=== PATIENT | female | born 1995 | race Caucasian/White ===

== ENCOUNTER 2019-05-25 12:59 | Emergency (ER) | payer OTHER ==
--- NOTE | 2019-05-25 13:05 | ERPHSYRPT ---
- History of Present Illness Time Seen by Provider: 05/25/19 13:05 Source: patient, family Exam Limitations: no limitations Physician History: 24 y/o white female presents with vaginal bleeding that began yesterday as spotting then increased to menstrual bleeding this am. mild suprapubic cramping. no n/v/d. pt is O negative blood type and has received rhogam in past. pt states she is 6 weeks . she had an ultrasound and determined one intrauterine fetus. pts ob is Dr. Montoya and we have been unable to access lab work and ultrasound through his office. work up supposedly performed this past . Timing/Duration: day(s) (1) Activites at Onset: none Quality: cramping (mild suprapubic cramping) Onset Location: suprapubic Pain Radiation: none Severity of Pain-Max: mild Severity of Pain-Current: mild Prior abdominal problems: none Sexual intercourse history: non-contributory Modifying Factors: Improves With: nothing Associated Symptoms: vaginal discharge (blood) Allergies/Adverse Reactions: cephalexin [From Keflex] Allergy (Verified 05/25/19 13:08) Penicillins Allergy (Verified 05/25/19 13:08) sulfamethoxazole [From Bactrim] Allergy (Verified 05/25/19 13:08) trimethoprim [From Bactrim] Allergy (Verified 05/25/19 13:08) Home Medications: Vits W-Ca,Fe,FA(<1Mg) [] 1 tab PO DAILY 05/25/19 [History] - Review of Systems Constitutional: No Symptoms Eyes: No Symptoms Ears, Nose, & Throat: No Symptoms Respiratory: No Symptoms Cardiac: No Symptoms Abdominal/Gastrointestinal: No Symptoms Genitourinary Symptoms: Vaginal Bleeding Musculoskeletal: No Symptoms Skin: No Symptoms Neurological: No Symptoms Psychological: No Symptoms Endocrine: No Symptoms Hematologic/Lymphatic: No Symptoms Immunological/Allergic: No Symptoms All Other Systems: Reviewed and Negative - Past Medical History Neurological History: No Pertinent History ENT History: No Pertinent History Cardiac History: No Pertinent History Respiratory History: No Pertinent History Endocrine Medical History: No Pertinent History Musculoskeletal History: No Pertinent History GI Medical History: No Pertinent History History: No Pertinent History Psycho-Social History: No Pertinent History Female Reproductive Disorders: No Pertinent History - Past Surgical History Neuro Surgical History: No Pertinent History Cardiac: No Pertinent History Respiratory: No Pertinent History Gastrointestinal: No Pertinent History Genitourinary: No Pertinent History Musculoskeletal: No Pertinent History Female Surgical History: No Pertinent History - Nursing Vital Signs Nursing Vital Signs: Initial Vital Signs Temperature 98.4 F 05/25/19 13:10 Pulse Rate 105 H 05/25/19 13:10 Respiratory Rate 18 05/25/19 13:10 Blood Pressure 147/86 05/25/19 13:10 O2 Sat by Pulse Oximetry 100 05/25/19 13:10 Pain Scale Pain Intensity 5 - Physical Exam General Appearance: no apparent distress, alert, anxiety Eye Exam: PERRL/EOMI, eyes nml inspection Ears, Nose, Throat Exam: normal ENT inspection, moist mucous membranes Neck Exam: normal inspection, non-tender, supple, full range of motion Respiratory Exam: normal breath sounds, lungs clear, airway intact, No chest tenderness, No respiratory distress Cardiovascular Exam: regular rate/rhythm, normal heart sounds, normal peripheral pulses Gastrointestinal/Abdomen Exam: soft, normal bowel sounds, No tenderness Pelvic Exam: not done, vaginal bleeding ( is not bleeding at this time) Rectal Exam: not done Back Exam: normal inspection, normal range of motion, No CVA tenderness Extremity Exam: normal inspection, normal range of motion, pelvis stable Neurologic Exam: alert, oriented x 3, cooperative, multiple games dealer II-XII nml as tested Skin Exam: normal color, warm, dry Lymphatic Exam: adenopathy O2 Delivery: Room Air - Course Nursing assessment & vital signs reviewed: Yes Ordered Tests: Active Orders 24 hr Category Date Time Status CBC W DIFF Stat Lab 05/25/19 13:17 Completed CMP Stat Lab 05/25/19 13:17 Completed HCG, Quantitative (Inhouse) Stat Lab 05/25/19 13:17 Completed UA W/RFX UR CULTURE Stat Lab 05/25/19 13:17 Completed Lab/Rad Data: Laboratory Result Diagrams 05/25/19 13:17 05/25/19 13:17 Laboratory Results 05/25/19 05/25/19 05/25/19 Range/Units 13:17 13:17 13:17 WBC (4.0-10.5) K/mm3 RBC (4.1-5.4) M/mm3 Hgb (12.0-16.0) gm/dl Hct (35-47) % MCV (78-100) fl MCH (26-32) pg MCHC (32-36) g/dl RDW (11.5-14.0) % Plt Count (150-450) K/mm3 MPV (6-9.5) fl Gran % (36.0-66.0) % Eos # (Auto) (0-0.5) Absolute Lymphs (auto) (1.0-4.6) Absolute Monos (auto) (0.0-1.3) Lymphocytes % (24.0-44.0) % Monocytes % (0.0-12.0) % Eosinophils % (0.00-5.0) % Basophils % (0.0-0.4) % Absolute Granulocytes (1.4-6.9) Basophils # (0-0.4) Sodium 140 (137-145) mmol/L Potassium 3.6 (3.5-5.1) mmol/L Chloride 104 (98-107) mmol/L Carbon Dioxide 26 (22-30) mmol/L Anion Gap 13.5 (5-15) MEQ/L BUN 8 (7-17) mg/dL Creatinine 0.59 (0.52-1.04) mg/dL Estimated GFR > 60.0 ML/MIN Glucose 82 (74-106) mg/dL Calcium 9.6 (8.4-10.2) mg/dL Total Bilirubin 0.70 (0.2-1.3) mg/dL AST 23 (14-36) U/L ALT 16 (0-35) U/L Alkaline Phosphatase 107 (38-126) U/L Serum Total Protein 8.0 (6.3-8.2) g/dL Albumin 4.2 (3.5-5.0) g/dL Beta HCG, Quant 1126.6 mIU/ml Urine Color YELLOW (YELLOW) Urine Appearance CLEAR (CLEAR) Urine pH 7.0 (5-6) Ur Specific [place] 1.009 (1.005-1.025) Urine Protein NEGATIVE (Negative) Urine Ketones NEGATIVE (NEGATIVE) Urine Blood MODERATE (0-5) Guido/ul Urine Nitrite NEGATIVE (NEGATIVE) Urine Bilirubin NEGATIVE (NEGATIVE) Urine Urobilinogen NEGATIVE (0-1) mg/dL Ur Leukocyte Esterase NEGATIVE (NEGATIVE) Urine WBC (Auto) 6-10 (0-5) /HPF Urine RBC (Auto) 0-2 (0-2) /HPF U Epithel Cells (Auto) NONE (FEW) /HPF Urine Bacteria (Auto) RARE (NEGATIVE) /HPF Urine Mucus (Auto) SLIGHT (NEGATIVE) /HPF Urine Culture Reflexed NO (NO) Urine Glucose NEGATIVE (NEGATIVE) mg/dL 05/25/19 Range/Units 13:17 WBC 10.7 H (4.0-10.5) K/mm3 RBC 4.64 (4.1-5.4) M/mm3 Hgb 13.1 (12.0-16.0) gm/dl Hct 38.7 (35-47) % MCV 83.4 (78-100) fl MCH 28.2 (26-32) pg MCHC 33.9 (32-36) g/dl RDW 13.9 (11.5-14.0) % Plt Count 316 (150-450) K/mm3 MPV 10.9 H (6-9.5) fl Gran % 59.1 (36.0-66.0) % Eos # (Auto) 0.19 (0-0.5) Absolute Lymphs (auto) 2.83 (1.0-4.6) Absolute Monos (auto) 1.34 H (0.0-1.3) Lymphocytes % 26.4 (24.0-44.0) % Monocytes % 12.5 H (0.0-12.0) % Eosinophils % 1.8 (0.00-5.0) % Basophils % 0.2 (0.0-0.4) % Absolute Granulocytes 6.32 (1.4-6.9) Basophils # 0.02 (0-0.4) Sodium (137-145) mmol/L Potassium (3.5-5.1) mmol/L Chloride (98-107) mmol/L Carbon Dioxide (22-30) mmol/L Anion Gap (5-15) MEQ/L BUN (7-17) mg/dL Creatinine (0.52-1.04) mg/dL Estimated GFR ML/MIN Glucose (74-106) mg/dL Calcium (8.4-10.2) mg/dL Total Bilirubin (0.2-1.3) mg/dL AST (14-36) U/L ALT (0-35) U/L Alkaline Phosphatase (38-126) U/L Serum Total Protein (6.3-8.2) g/dL Albumin (3.5-5.0) g/dL Beta HCG, Quant mIU/ml Urine Color (YELLOW) Urine Appearance (CLEAR) Urine pH (5-6) Ur Specific [place] (1.005-1.025) Urine Protein (Negative) Urine Ketones (NEGATIVE) Urine Blood (0-5) Guido/ul Urine Nitrite (NEGATIVE) Urine Bilirubin (NEGATIVE) Urine Urobilinogen (0-1) mg/dL Ur Leukocyte Esterase (NEGATIVE) Urine WBC (Auto) (0-5) /HPF Urine RBC (Auto) (0-2) /HPF U Epithel Cells (Auto) (FEW) /HPF Urine Bacteria (Auto) (NEGATIVE) /HPF Urine Mucus (Auto) (NEGATIVE) /HPF Urine Culture Reflexed (NO) Urine Glucose (NEGATIVE) mg/dL - Progress Progress: unchanged Air Movement: good Blood Culture(s) Obtained: No Antibiotics given: No Counseled pt/family regarding: lab results, diagnosis, need for follow-up - Departure Departure Disposition: Home Clinical Impression: Vaginal bleeding before 22 weeks gestation Condition: Stable Critical Care Time: No Referrals: MARY MONTOYA DO [Primary Care Provider] - Additional Instructions: call Dr. Montoya office tomorrow morning to arrange follow up appointment.
[2019-05-25 13:28] LABS: Absolute Neutrophil Ct (ANC) 6.32 (1.4-6.9); BASOPHIL % 0.2 % (0.0-0.4); Basophil (Absolute #) 0.02 (0-0.4); Eosinophil % 1.8 % (0.00-5.0); Eosinophil (Absolute #) 0.19 (0-0.5); Hematocrit 38.7 % (35-47); Hemoglobin 13.1 gm/dl (12.0-16.0); Lymphocyte (Absolute #) 2.83 (1.0-4.6); Lymphocytes % 26.4 % (24.0-44.0); Mean Cell Volume 83.4 fl (78-100); Mean Corpuscular Hemoglobin 28.2 pg (26-32); Mean Corpuscular Hgb Concent. 33.9 g/dl (32-36); Mean Platelet Volume 10.9 fl (6-9.5); Monocyte (Absolute #) 1.34 (0.0-1.3); Monocytes % 12.5 % (0.0-12.0); Neutrophil % 59.1 % (36.0-66.0); Platelet Count 316 K/mm3 (150-450); Red Blood Count 4.64 M/mm3 (4.1-5.4); Red Cell Distribution Width 13.9 % (11.5-14.0); White Blood Count 10.7 K/mm3 (4.0-10.5)
[2019-05-25 13:34] LABS: ALBUMIN 4.2 g/dL (3.5-5.0); ALKALINE PHOSPHATASE 107 U/L (38-126); ANION GAP 13.5 MEQ/L (5-15); BLOOD UREA NITROGEN 8 mg/dL (7-17); CHLORIDE 104 mmol/L (98-107); Calcium 9.6 mg/dL (8.4-10.2); Carbon Dioxide 26 mmol/L (22-30); Creatinine 1 0.59 mg/dL (0.52-1.04); Glucose 82 mg/dL (74-106); Potassium 3.6 mmol/L (3.5-5.1); SGOT/AST 23 U/L (14-36); SGPT/ALT 16 U/L (0-35); SODIUM 140 mmol/L (137-145)
[2019-05-25 13:44] LABS: Appearance CLEAR (CLEAR); Bacteria RARE /HPF (NEGATIVE); Bilirubin NEGATIVE (NEGATIVE); Blood MODERATE Ery/ul (0-5); Glucose NEGATIVE (NEGATIVE); Ketones NEGATIVE (NEGATIVE); Leukocyte Esterase NEGATIVE (NEGATIVE); Mucus SLIGHT /HPF (NEGATIVE); Nitrite NEGATIVE (NEGATIVE); Protein,Urine Dip NEGATIVE (Negative); RBC 0-2 /HPF (0-2); Specific Gravity 1.009 (1.005-1.025); Urobilinogen NEGATIVE mg/dL (0-1)
[2019-05-25 14:17] VITALS: BP 115/73
[2019-05-25 14:18] VITALS: PULSE 90; O2SAT 99
== END 2019-05-25 15:00 | disposition home or self-care (01) ==
LOC: ED 12:59
DX: O46.92 Antepartum hemorrhage, unspecified, second trimester (principal); Z3A.22 22 weeks gestation of pregnancy
CPT/HCPCS: 36415; 80053; 81001; 84702; 85025; 99283

== ENCOUNTER 2020-06-28 13:26 | Observation (INO) | payer OTHER ==
[2020-06-28 15:16] VITALS: BP 131/77; PULSE 112; O2SAT 99
== END 2020-06-28 16:00 | disposition home or self-care (01) ==
LOC: WHC 13:26 → OB 13:54
PROVIDERS: ADMIT Obstetrics & Gynecology; ATTEND Obstetrics & Gynecology
DX: Z34.81 Encounter for supervision of other normal pregnancy, first trimester (principal)
CPT/HCPCS: 59025; 59425; G0378; 81002

== ENCOUNTER 2020-07-05 12:40 | Observation (INO) | payer OTHER ==
[2020-07-05 14:17] VITALS: BP 127/66; PULSE 108
== END 2020-07-05 13:55 | disposition home or self-care (01) ==
LOC: OB 12:40
PROVIDERS: ADMIT Obstetrics & Gynecology; ATTEND Obstetrics & Gynecology
DX: Z34.83 Encounter for supervision of other normal pregnancy, third trimester (principal); Z3A.34 34 weeks gestation of pregnancy
CPT/HCPCS: 59025; G0378

== ENCOUNTER 2020-07-12 11:06 | Observation (INO) | payer OTHER ==
[2020-07-12 12:10] VITALS: BP 130/79; PULSE 107
--- NOTE | 2020-07-12 13:47 | XRAY ---
Indication: History factor V. Biophysical profile exam. Ultrasound biophysical profile study was performed. Comparison: None There is a single viable intrauterine with heart rate 139 BPM. Four-quadrant IFEOMA is 15.7 cm. 2 points given for breathing, movements, tone, and qualitative amniotic fluid volume. Impression: Total biophysical profile score is 8 out of 8.
== END 2020-07-12 14:17 | disposition home or self-care (01) ==
LOC: WHC 11:06 → OB 11:37
PROVIDERS: ADMIT Obstetrics & Gynecology; ATTEND Obstetrics & Gynecology
DX: Z34.83 Encounter for supervision of other normal pregnancy, third trimester (principal); Z3A.34 34 weeks gestation of pregnancy
CPT/HCPCS: 59025; 59425; 76819; G0378; 81002

== ENCOUNTER 2020-07-19 10:56 | Observation (INO) | payer OTHER ==
[2020-07-19 12:56] VITALS: BP 141/87; PULSE 123
== END 2020-07-19 12:50 | disposition home or self-care (01) ==
LOC: WHC 10:56 → OB 11:29
PROVIDERS: ADMIT Obstetrics & Gynecology; ATTEND Obstetrics & Gynecology
DX: Z34.83 Encounter for supervision of other normal pregnancy, third trimester (principal); Z3A.35 35 weeks gestation of pregnancy
CPT/HCPCS: 59025; 59425; 87081; G0378; 81002

== ENCOUNTER 2020-07-26 13:03 | Observation (INO) | payer OTHER ==
[2020-07-26 15:09] VITALS: BP 129/75; PULSE 93; O2SAT 97
== END 2020-07-26 14:25 | disposition home or self-care (01) ==
LOC: WHC 13:03 → OB 13:29
PROVIDERS: ADMIT Obstetrics & Gynecology; ATTEND Obstetrics & Gynecology
DX: O99.113 Other diseases of the blood and blood-forming organs and certain disorders involving the immune mechanism complicating pregnancy, third trimester (principal)
CPT/HCPCS: 59025; 59425; G0378; 81002

== ENCOUNTER 2020-07-31 23:27 | Observation (INO) | payer OTHER ==
[2020-08-01 00:21] VITALS: O2SAT 98
[2020-08-01 00:29] LABS: Amourphous Crystal FEW /HPF (NEGATIVE); Appearance SLIGHTLY CLOUDY (CLEAR); Bilirubin NEGATIVE (NEGATIVE); Blood NEGATIVE Ery/ul (0-5); Epithelial Cells RARE /HPF (FEW); Glucose NEGATIVE (NEGATIVE); Ketones NEGATIVE (NEGATIVE); Leukocyte Esterase SMALL (NEGATIVE); Mucus SLIGHT /HPF (NEGATIVE); Nitrite NEGATIVE (NEGATIVE); Protein,Urine Dip NEGATIVE (Negative); RBC 0-2 /HPF (0-2); Specific Gravity 1.012 (1.005-1.025); Urobilinogen NEGATIVE mg/dL (0-1)
[2020-08-01 00:42] LABS: Amphetamine,Urine NEGATIVE (NEGATIVE); Barbiturate,Urine NEGATIVE (NEGATIVE); Benzodiazepine,Urine NEGATIVE (NEGATIVE); Cocaine,Urine NEGATIVE (NEGATIVE); Methadone,Urine NEGATIVE (NEGATIVE); Opiate,Urine NEGATIVE (NEGATIVE); PCP,Urine NEGATIVE (NEGATIVE); THC,Urine NEGATIVE (NEGATIVE)
[2020-08-01] MEDS ORDERED: Lactated Ringers 1,000 ML IV ONE (04:00)
[2020-08-01 09:30] VITALS: BP 112/65; PULSE 105
[2020-08-01] MEDS ORDERED: Heparin 5000 UNITS/0.5 ML (HIGH RISK MED) SQ SCH (10:00)
== END 2020-08-01 10:30 | disposition home or self-care (01) ==
LOC: OB 23:27
PROVIDERS: ADMIT Obstetrics & Gynecology; ATTEND Obstetrics & Gynecology
DX: O47.1 False labor at or after 37 completed weeks of gestation (principal); O99.113 Other diseases of the blood and blood-forming organs and certain disorders involving the immune mechanism complicating pregnancy, third trimester; D68.51 Activated protein C resistance; Z3A.37 37 weeks gestation of pregnancy
CPT/HCPCS: 80307; 81001; G0378; J1644

== ENCOUNTER 2020-08-04 13:46 | Observation (INO) | payer OTHER ==
[2020-08-04 14:43] VITALS: BP 138/88; PULSE 64
== END 2020-08-04 14:55 | disposition home or self-care (01) ==
LOC: WHC 13:46 → OB 14:10
PROVIDERS: ADMIT Obstetrics & Gynecology; ATTEND Obstetrics & Gynecology
DX: O99.113 Other diseases of the blood and blood-forming organs and certain disorders involving the immune mechanism complicating pregnancy, third trimester (principal); D68.51 Activated protein C resistance; Z3A.38 38 weeks gestation of pregnancy
CPT/HCPCS: 59025; 59425; 81002; G0378

== ENCOUNTER 2020-08-07 09:08 | Observation (INO) | payer OTHER ==
[2020-08-07] MEDS ORDERED: AMMONIA AROMATIC IH ONE (10:55)
[2020-08-07 11:29] VITALS: BP 121/72; PULSE 115; O2SAT 98
== END 2020-08-07 11:20 | disposition home or self-care (01) ==
LOC: UNDOADMOB 09:08 → OB 09:08 → UNDODISOB 11:20
PROVIDERS: ADMIT Obstetrics & Gynecology; ATTEND Obstetrics & Gynecology
DX: O99.113 Other diseases of the blood and blood-forming organs and certain disorders involving the immune mechanism complicating pregnancy, third trimester (principal); D68.51 Activated protein C resistance
CPT/HCPCS: 59025; G0378

== ENCOUNTER 2020-08-10 04:48 | Inpatient (IN) | payer OTHER ==
[~2020-08-10 04:48] MED LIST: CLINDAMYCIN-D5W 900 MG/50 ML*** 900 MG/50 ML BAG IV SCH
[2020-08-10 05:18] LABS: Hematocrit 31.6 % (35-47); Hemoglobin 10.3 gm/dl (12.0-16.0); Mean Cell Volume 80.6 fl (78-100); Mean Corpuscular Hemoglobin 26.3 pg (26-32); Mean Corpuscular Hgb Concent. 32.6 g/dl (32-36); Mean Platelet Volume 10.5 fl (7.5-11.0); Platelet Count 245 K/mm3 (150-450); Red Blood Count 3.92 M/mm3 (4.1-5.4); Red Cell Distribution Width 15.8 % (11.5-14.0); White Blood Count 16.8 K/mm3 (4.0-10.5)
[2020-08-10 05:25] LABS: INR 1.01 (0.8-3.0); PROTIME 11.4 SECONDS (9.95-12.35)
[2020-08-10 05:27] LABS: PTT 26.5 SECONDS (25.3-37.0)
[2020-08-10] MEDS: Lactated Ringers 1,000 ML IV SCH ×2 (05:45→06:53)
[2020-08-10 05:46] LABS: Appearance SLIGHTLY CLOUDY (CLEAR); Bacteria FEW /HPF (NEGATIVE); Bilirubin NEGATIVE (NEGATIVE); Blood NEGATIVE Ery/ul (0-5); Calcium Oxalate Crystals 26-50 /HPF (NEGATIVE); Epithelial Cells FEW /HPF (FEW); Glucose NEGATIVE (NEGATIVE); Ketones NEGATIVE (NEGATIVE); Leukocyte Esterase MODERATE (NEGATIVE); Mucus SLIGHT /HPF (NEGATIVE); Nitrite NEGATIVE (NEGATIVE); Protein,Urine Dip NEGATIVE (Negative); Specific Gravity 1.017 (1.005-1.025); Urobilinogen NEGATIVE mg/dL (0-1)
[2020-08-10 05:54] LABS: Amphetamine,Urine NEGATIVE (NEGATIVE); Barbiturate,Urine NEGATIVE (NEGATIVE); Benzodiazepine,Urine NEGATIVE (NEGATIVE); Cocaine,Urine NEGATIVE (NEGATIVE); Methadone,Urine NEGATIVE (NEGATIVE); Opiate,Urine NEGATIVE (NEGATIVE); PCP,Urine NEGATIVE (NEGATIVE); THC,Urine NEGATIVE (NEGATIVE)
[2020-08-10 05:58] LABS: ABO TYPING O; Antibody Screen NEGATIVE (NEGATIVE); RH TYPING NEGATIVE
[2020-08-10] MEDS ORDERED: Pepcid 20 MG VIAL IV SCH (06:30)
[2020-08-10] MEDS ORDERED: SOD CITRATE-CITRIC ACID SOLN PO ONE (06:30)
[2020-08-10] MEDS ORDERED: Reglan 10 MG/2 ML IV SCH (06:30)
[2020-08-10] MEDS ORDERED: CLINDAMYCIN-D5W 900 MG/50 ML*** 900 MG/50 ML BAG IV SCH (06:30)
[2020-08-10] MEDS ORDERED: Astramorph-Pf 5 MG/10 ML ONE (07:25)
[2020-08-10] MEDS ORDERED: GARAMYCIN INJ ONE (07:54)
[2020-08-10] MEDS ORDERED: CLINDAMYCIN-D5W 900 MG/50 ML*** 900 MG/50 ML BAG IV ONE (07:54)
[2020-08-10] MEDS ORDERED: Pitocin 10 UNITS/ML ONE (08:35)
[2020-08-10] MEDS ORDERED: PHENYLEPHRINE HCL ONE (08:36)
[2020-08-10] MEDS ORDERED: MARCAINE 0.5%-EPI 1:200,000 VL IJ ONE (08:40)
[2020-08-10] MEDS ORDERED: Marcaine 0.5%/Epinephrine 10 ML ONE (08:40)
[2020-08-10] MEDS ORDERED: LANSINOH 40 GM TOP PRN (09:00)
[2020-08-10] MEDS ORDERED: Dextrose 5%-Lr IV Solution 1000 ML 1,000 ML IV SCH (09:00)
[2020-08-10] MEDS ORDERED: HOLD NARCOTIC ANALGESICS AND SEDATIVES X24 HR MC PRN (09:00)
[2020-08-10] MEDS ORDERED: MORPHINE SULFATE 2 MG INJ IV PRN (09:00)
[2020-08-10] MEDS ORDERED: Sodium Chloride 0.9% 10 ML FLUSH Syringe IJ PRN (09:00)
[2020-08-10] MEDS ORDERED: PERCOCET TABLET 5/325MG PO PRN (09:00)
[2020-08-10] MEDS ORDERED: CLARITIN 10 MG PO PRN (09:00)
[2020-08-10] MEDS ORDERED: TUCKS TP PRN (09:00)
[2020-08-10] MEDS ORDERED: CORTISONE 1% CREAM TP PRN (09:00)
[2020-08-10] MEDS ORDERED: BENADRYL 50 MG/ML IV PRN (09:00)
[2020-08-10] MEDS ORDERED: Zofran 4 MG/2 ML VIAL IV PRN (09:00)
[2020-08-10] MEDS ORDERED: DEMEROL 50 MG IV PRN (09:00)
[2020-08-10] MEDS ORDERED: Narcan 0.4 MG/ML IV PRN (09:00)
[2020-08-10] MEDS ORDERED: Nubain 10 MG/ML IV PRN (09:00)
[2020-08-10] MEDS ORDERED: DEMEROL 50 MG ONE (09:14)
[2020-08-10 10:24] LABS: Appearance CLEAR (CLEAR); Bilirubin NEGATIVE (NEGATIVE); Blood SMALL Ery/ul (0-5); Glucose NEGATIVE (NEGATIVE); Hyaline Casts 0-2 /LPF (0-2); Ketones NEGATIVE (NEGATIVE); Leukocyte Esterase NEGATIVE (NEGATIVE); Nitrite NEGATIVE (NEGATIVE); Protein,Urine Dip NEGATIVE (Negative); Specific Gravity 1.004 (1.005-1.025); Urobilinogen NEGATIVE mg/dL (0-1); WBC 0-2 /HPF (0-5)
[2020-08-10] MEDS: TYLENOL EXTRA STRENGTH 500 MG PO PRN ×2 (11:08→22:09)
[2020-08-10 11:24] LABS: ABO TYPING O; ANTIBODY SCREEN NEGATIVE (NEGATIVE); RH TYPING NEGATIVE
[2020-08-10] MEDS: GENTAMICIN 80 MG/50 ML PREMIX*** 80 MG/50 ML ML IV SCH (16:39)
[2020-08-10] MEDS: CLINDAMYCIN-D5W 900 MG/50 ML*** 900 MG/50 ML BAG IV SCH (16:39)
[2020-08-10] MEDS ORDERED: Adacel Vial IM ONE (18:00)
[2020-08-10] MEDS: Mylicon 80MG PO PRN (19:54)
[2020-08-10] MEDS ORDERED: Ambien 10 MG PO PRN (22:00)
[2020-08-10] MEDS: Colace 100 MG PO SCH (22:09)
[2020-08-11] MEDS: CLINDAMYCIN-D5W 900 MG/50 ML*** 900 MG/50 ML BAG IV SCH (00:16)
[2020-08-11] MEDS: GENTAMICIN 80 MG/50 ML PREMIX*** 80 MG/50 ML ML IV SCH (01:01)
[2020-08-11] MEDS: Mylicon 80MG PO PRN ×3 (02:36→18:40)
[2020-08-11] MEDS: MOTRIN 400 MG PO PRN ×3 (02:36→18:39)
[2020-08-11 05:24] LABS: Hematocrit 25.8 % (35-47); Hemoglobin 8.1 gm/dl (12.0-16.0); Mean Cell Volume 82.4 fl (78-100); Mean Corpuscular Hemoglobin 25.9 pg (26-32); Mean Corpuscular Hgb Concent. 31.4 g/dl (32-36); Mean Platelet Volume 10.4 fl (7.5-11.0); Platelet Count 207 K/mm3 (150-450); Red Blood Count 3.13 M/mm3 (4.1-5.4); Red Cell Distribution Width 16.2 % (11.5-14.0); White Blood Count 17.5 K/mm3 (4.0-10.5)
[2020-08-11] MEDS ORDERED: ENOXAPARIN SODIUM SQ SCH (08:00)
[2020-08-11 08:26] LABS: ANISOCYTOSIS 1+; Lymphocytes 10 % (24-44); Monocyte 5 % (0.0-12.0); Neutrophils 85 % (36.0-66.0); Platelet Estimate NORMAL (NORMAL); Total Cells Counted 100
[2020-08-11 08:27] LABS: Microcytosis 1+; Toxic Granulation 1+
[2020-08-11] MEDS ORDERED: NORCO 5/325 MG PO PRN (09:00)
--- NOTE | 2020-08-11 09:02 | OP ---
SURGERY DATE/TIME: 08/10/2020 0756 PREOPERATIVE DIAGNOSIS: Intrauterine at 39 weeks gestation with previous section with current heterozygous factor V Leiden and suspected monosomy X, declined trial of labor. POSTOPERATIVE DIAGNOSIS: Intrauterine at 39 weeks gestation with previous section with current heterozygous factor V Leiden and suspected monosomy X, declined trial of labor. PROCEDURE: Repeat section, low flap transverse uterine incision, Pfannenstiel skin incision. SURGEON: Arturo Montoya D.O. PIT WORKER POWER SHOVEL: GARRETT Quezada student. ANESTHESIA: Spinal. ESTIMATED BLOOD LOSS: 800 cc. COMPLICATIONS: None. INDICATIONS: The risks, benefits, indications and alternatives of the procedure were reviewed with the patient prior to procedure. The patient understood the risk of infection, bleeding, bowel injury, bladder injury, ureteral injury, incisional hernia associated with the surgery however desires to have the surgery as a possible means to alleviate her current medical condition. DESCRIPTION OF PROCEDURE AND FINDINGS: At this point the patient is taken to the operating room where spinal anesthesia was found to adequate. She was then prepared and draped in normal sterile fashion in the dorsal supine position with leftward tilt. A Pfannenstiel skin incision is made with a scalpel and carried through to the underlying layer of the fascia with Bovie. The fascia was then incised in the midline and the incision extended laterally with Martinez scissors. The superior aspect of the fascial incision was then grasped Marleny clamps elevated and the underlying rectus muscles dissected off bluntly. Attention is then turned to the inferior aspect of this incision which in similar fashion was grasped, tented up with Marleny clamps and the rectus muscles dissected off bluntly. The rectus muscles were then at the midline and the peritoneum identified, tented up and entered sharply with Metzenbaum scissors. The peritoneal incision was then extended superiorly and inferiorly with good visualization of the bladder. The bladder blade was then inserted and the vesicouterine peritoneum identified, grasped with a pickup and entered sharply with Metzenbaum scissors. This incision was then extended laterally and bladder flap created digitally. The bladder blade was then re-inserted and the lower uterine segment incised in transverse fashion with a scalpel. The uterine incision was then extended laterally with bandage scissors. At this point the bladder blade was then removed and the infants head was delivered atraumatically. The nose and mouth were suctioned with bulb suction and the cord clamped and cut. The infant was then handed off to the awaiting nurses. The placenta was then removed manually. The uterus exteriorized and cleared of all clots and debris. The uterine incision was repaired with 1-0 chromic in running locked fashion. A second layer of the same suture was used to obtain excellent hemostasis. The uterus is then returned to the abdomen. The gutters were cleared of all clots and the peritoneal muscle was closed with 2-0 chromic suture. The fascia was re-approximated with 0 Vicryl suture and the subcutaneous layer was closed with 3-0 Vicryl. The skin was closed with absorbable triston called INSORB. The patient tolerated the procedure well. Sponge, lap, needle and instrument counts were correct x2. The patient was then taken to the recovery room in stable condition. The patient delivered a live baby girl at 0826 hours. 's were 8 at 1 minute and 9 at 5 minutes and the delivery weight was 6 pounds 4 ounces.
[2020-08-11] MEDS: PATIENT OWN MEDICATION SQ SCH (09:05)
[2020-08-11] MEDS ORDERED: Rhogam Plus 300 MCG IM ONE (10:00)
[2020-08-11] MEDS ORDERED: FERREX 150 PO SCH (10:00)
[2020-08-11] MEDS: TYLENOL EXTRA STRENGTH 500 MG PO PRN ×3 (10:39→22:07)
[2020-08-11] MEDS: Colace 100 MG PO SCH ×2 (10:41→22:07)
--- NOTE | 2020-08-11 15:59 | PCM.NOTE ---
Date and Time: 08/11/20 1543 Subjective Assessment: POD 1 SP CSECTION PT RESTING IN BED AND DOING WELL ABLE TO AMBULATE AND TOLERATE DIET. VSS AFEBRILE ABD; SOFT INCISION C/D/INTACT AND DRESSING INTACT UTERUS; FIRM LOCHIA; MILD HGB; 8 A/P SP CSECTION POD 1 WITH ANEMIA ASYMPTOMATIC WITH ANEMIA PT DESIRING TO GO HOME TOMORROW SHOULD FU IN OFFICE IN 1 WK FOR DRESSING REMOVAL OBJECTIVE DATA Vital Signs: Vital Signs - 24 hr Temp Pulse Resp BP Pulse Ox 08/11/20 08:00 98.0 F 89 18 105/72 98 08/11/20 07:00 98 08/11/20 06:00 100 08/11/20 05:00 98 08/11/20 04:00 96 08/11/20 03:00 96 08/11/20 02:00 96 08/11/20 01:00 97 08/11/20 00:38 98.3 F 101 H 18 100/56 98 08/11/20 00:00 98 08/10/20 22:57 98 08/10/20 22:00 98.5 F 18 111/58 98 08/10/20 21:00 97 08/10/20 20:00 99 08/10/20 19:00 99 08/10/20 18:00 97 08/10/20 17:00 100 08/10/20 16:00 111 H 20 115/55 100 Pain Assessment - Last Documented Pain Intensity [Anterior] 1 Pain Intensity 4 Pain Scale Used 0-10 Pain Scale Intake and Output: Intake & Output 08/09/20 08/10/20 08/11/20 08/12/20 11:59 11:59 11:59 11:59 Intake Total 10 2511 Output Total 1400 Balance 10 1111 Weight 100.698 kg Lab Results: Lab Results-Last 24 Hours 08/10/20 08/11/20 Range/Units 05:15 05:03 WBC 17.5 H (4.0-10.5) K/mm3 RBC 3.13 L (4.1-5.4) M/mm3 Hgb 8.1 L D (12.0-16.0) gm/dl Hct 25.8 L (35-47) % MCV 82.4 (78-100) fl MCH 25.9 L (26-32) pg MCHC 31.4 L (32-36) g/dl RDW 16.2 H (11.5-14.0) % Plt Count 207 (150-450) K/mm3 MPV 10.4 (7.5-11.0) fl Segmented Neutrophils 85 H (36.0-66.0) % Lymphocytes (Manual) 10 L (24-44) % Monocytes (Manual) 5 (0.0-12.0) % Toxic Granulation 1+ Platelet Estimate NORMAL (NORMAL) RBC Morphology ABNORMAL Anisocytosis 1+ Microcytosis 1+ Hep Bs Antigen Negative (Negative)
[2020-08-12] MEDS: MOTRIN 400 MG PO PRN ×2 (02:30→08:23)
[2020-08-12] MEDS: TYLENOL EXTRA STRENGTH 500 MG PO PRN (06:25)
[2020-08-12] MEDS: PATIENT OWN MEDICATION SQ SCH (08:18)
[2020-08-12] MEDS ORDERED: M-M-R II Vaccine With Diluent SQ ONE (10:00)
[2020-08-12 11:13] VITALS: BP 118/72; PULSE 105; O2SAT 97
--- NOTE | 2020-08-12 13:52 | PCM.DS ---
Discharge Summary Date of Admission: 08/10/20 04:48 Admitting Physician: MARY MONTOYA DO Consults: Consults on Case 08/10/20 05:00 Notify Physician OF ADMISSION 08/10/20 05:30 Notify Anesthesia Provider PRN Primary Care Provider: MAYR MONTOYA DO Allergies Allergies cephalexin [From Keflex] Allergy (Mild, Verified 08/10/20 05:21) Hives Penicillins Allergy (Mild, Verified 08/10/20 05:21) Hives sulfamethoxazole [From Bactrim] Allergy (Mild, Verified 08/10/20 05:21) Hives trimethoprim [From Bactrim] Allergy (Mild, Verified 08/10/20 05:21) Hives Hospital Summary - Hospital Course Hospital Course: pt was admitted on aug 10 for undergoing repeat csection and underwent procedure without complication and delivered live baby girl. pt with hx of heterozygous factor five leiden and had been on lovenox throughout her with subsequent switch over at 36 wks to heparin. during postop period did very well and was now stable for discharge with fu in office in 2 wks for postop incision check. denies complaints and all questions answered to her satisfaction. - Vitals & Intake/Output Vital Signs: Vital Signs Temperature 97.8 F 08/12/20 10:00 Pulse Rate 105 H 08/12/20 10:00 Respiratory Rate 20 08/12/20 10:00 Blood Pressure 118/72 08/12/20 10:00 O2 Sat by Pulse Oximetry 97 08/12/20 10:00 Intake & Output: Intake & Output 08/10/20 08/11/20 08/12/20 08/13/20 11:59 11:59 11:59 11:59 Intake Total 10 2511 2700 Output Total 1400 Balance 10 1111 2700 Weight 100.698 kg - Lab Result Diagrams: 08/11/20 05:03 Lab Results-Last 24 Hrs: Lab Results-Last 24 Hours 08/10/20 Range/Units 10:30 Screen SEE SEPARATE REPORT Micro Results-Entire Visit: Microbiology 08/10/20 08:12 Urine Culture - Final Catherized NO GROWTH 08/10/20 05:15 Urine Culture - Final Clean Catch Midstream NO GROWTH - Procedures and Test Procedures and Tests throughout Hospitalization: Therapy Orders & Screens 08/10/20 08:47 Standby ROUTINE Comment: Diagnosis: Repeat Final Diagnosis/Problem List - Final Discharge Diagnosis/Problem (1) delivery due to maternal disorder Status: Acute Code(s): O99.892 - OTH DISEASES AND CONDITIONS COMPLICATING CHILDBIRTH (2) Heterozygous factor V Leiden affecting , antepartum Status: Acute Code(s): O99.119 - OTH DIS OF BLD/BLD-FORM ORG/IMMUN MECHNSM COMP PREG,UNSP TRI; D68.51 - ACTIVATED PROTEIN C RESISTANCE - Discharge Disposition: Home, Self-Care Condition: Stable Prescriptions: No Action Vits W-Ca,Fe,FA(<1Mg) [] 1 tab PO HS Ferrous Sulfate 325 mg [Feosol 325 mg] 325 mg PO HS Aspirin EC 81 mg [Ecotrin 81 mg] 81 mg PO BID Heparin 5000 Units/0.5 ml [Heparin 5000 UNITS/0.5 ML (HIGH RISK MED)] 10,000 unit SQ BID Additional Instructions: Call the office of Dr. Montoya to schedule your two week follow up appointment. Follow up with: MARY MONTOYA DO [Primary Care Provider] - 2 weeks Forms: OB Discharge Instructions
--- NOTE | 2020-08-12 13:53 | PCM.NOTE ---
Date and Time: 08/12/20 1352 Subjective Assessment: pod 2 pt doing well without complaints vss afebril abd; soft dressing intact per nursing hgb; 8 from aug 11 a/p sp csection pod 2 stable dc home today fu office in 2 wks OBJECTIVE DATA Vital Signs: Vital Signs - 24 hr Temp Pulse Resp BP Pulse Ox 08/12/20 10:00 97.8 F 105 H 20 118/72 97 08/12/20 08:00 97.8 F 105 H 20 118/72 97 08/12/20 02:00 97.9 F 92 H 18 111/66 95 08/11/20 20:00 97.6 F 101 H 20 113/62 96 08/11/20 14:00 98.6 F 99 H 18 104/56 97 Pain Assessment - Last Documented Pain Intensity [Anterior] 2 Pain Intensity 2 Pain Scale Used 0-10 Pain Scale Intake and Output: Intake & Output 08/10/20 08/11/20 08/12/20 08/13/20 11:59 11:59 11:59 11:59 Intake Total 10 2511 2700 Output Total 1400 Balance 10 1111 2700 Weight 100.698 kg Lab Results: Lab Results-Last 24 Hours 08/10/20 Range/Units 10:30 Screen SEE SEPARATE REPORT Assessment/Plan (1) delivery due to maternal disorder Status: Acute Code(s): O99.892 - OTH DISEASES AND CONDITIONS COMPLICATING CHILDBIRTH (2) Heterozygous factor V Leiden affecting , antepartum Status: Acute Code(s): O99.119 - OTH DIS OF BLD/BLD-FORM ORG/IMMUN MECHNSM COMP PREG,UNSP TRI; D68.51 - ACTIVATED PROTEIN C RESISTANCE
== END 2020-08-12 10:25 | disposition home or self-care (01) | DRG 787 ==
LOC: MED SURG 04:48
PROVIDERS: ADMIT Obstetrics & Gynecology; ATTEND Obstetrics & Gynecology
PROC: 10D00Z1 Extraction of Products of Conception, Low, Open Approach (ICD-10-PCS; principal; 2020-08-10)
DX: O34.211 Maternal care for low transverse scar from previous cesarean delivery (principal); O99.12 Other diseases of the blood and blood-forming organs and certain disorders involving the immune mechanism complicating childbirth; D68.51 Activated protein C resistance; Z3A.39 39 weeks gestation of pregnancy; Z37.0 Single live birth
CPT/HCPCS: 36415; 62322; 64488; 76937; 76942; 80307; 81001; 85025; 85027; 85461; 85610; 85730; 86762; 86850; 86900; 86901; 87086; 87340; 88307; 90384; 90471; 90707; 90715; 94799; J1580; J2175; J2274; J2370; J2405; J2590; J2790; L0625; A9270-GY

== ENCOUNTER 2022-08-28 11:52 | Emergency (ER) | payer OTHER ==
[2022-08-28 12:41] LABS: Absolute Neutrophil Ct (ANC) 9.15 x10^3/uL (1.4-6.9); BASOPHIL % 0.3 % (0.0-0.4); Basophil (Absolute #) 0.03 x10^3/uL (0-0.4); Eosinophil % 0.3 % (0.00-5.0); Eosinophil (Absolute #) 0.04 x10^3/uL (0-0.5); Hematocrit 34.4 % (35-47); Hemoglobin 11.5 g/dL (12.0-16.0); IMMATURE GRAN # 0.07 x10^3u/L (0.00-0.03); IMMATURE GRAN % 0.6 % (0.00-0.4); Lymphocyte (Absolute #) 1.69 x10^3/uL (1.0-4.6); Lymphocytes % 14.5 % (24.0-44.0); Mean Cell Volume 82.5 fL (78-100); Mean Corpuscular Hemoglobin 27.6 pg (26-32); Mean Corpuscular Hgb Concent. 33.4 g/dL (32-36); Mean Platelet Volume 10.7 fL (7.5-11.0); Neutrophil % 78.3 % (36.0-66.0); Platelet Count 261 x10^3/uL (150-450); Red Blood Count 4.17 x10^6/uL (4.1-5.4); White Blood Count 11.7 x10^3/uL (4.0-10.5)
[2022-08-28 12:51] LABS: ALBUMIN 3.8 g/dL (3.5-5.0); ALKALINE PHOSPHATASE 88 U/L (38-126); ANION GAP 11.3 MEQ/L (5-15); BLOOD UREA NITROGEN 10 mg/dL (7-17); CHLORIDE 104 mmol/L (98-107); Calcium 8.9 mg/dL (8.4-10.2); Carbon Dioxide 25 mmol/L (22-30); Creatinine 1 0.43 mg/dL (0.52-1.04); EST GLOMERULAR FILTRATION RATE > 60.0 ML/MIN; Glucose 92 mg/dL (74-106); SGOT/AST 16 U/L (14-36); SGPT/ALT 14 U/L (0-35); SODIUM 136 mmol/L (137-145); Total Protein 7.3 g/dL (6.3-8.2); Uric Acid 4.5 mg/dL (2.6-6.0)
[2022-08-28 13:21] LABS: Appearance Cloudy (Clear); Bacteria Rare /HPF (None Seen); Bilirubin Negative (Negative); Blood Negative (Negative); Epithelial Cells Moderate /HPF (None Seen); Glucose, Urine Negative (Negative); Ketones Trace (Negative); Leukocyte Esterase Moderate (Negative); Nitrite Negative (Negative); Protein,Urine Dip Negative (Negative); Specific Gravity >=1.030 (1.005-1.030); Urobilinogen 0.2 mg/dL (0.2)
[2022-08-28 13:24] LABS: RBC 0-2 /HPF (0-5)
[2022-08-28 13:25] LABS: ADD URINE CULTURE? YES (NO)
[2022-08-28 13:27] LABS: D-DIMER QUANTITATIVE 0.56 mg/L (0.0-0.50); INR 0.91 (0.8-3.0); PTT 27.1 SECONDS (25.1-36.5)
[2022-08-28 13:44] VITALS: BP 116/75; PULSE 100; O2SAT 98
--- NOTE | 2022-08-28 13:53 | ERPHSYRPT ---
- History of Present Illness Time Seen by Provider: 08/28/22 12:10 Source: patient Exam Limitations: no limitations Patient Subjective Stated Complaint: C/O feeling dizzy at work today. NO pain. States B/P 140/96 at work when it was checked. Dr. Montoya instructed her to go to the ER. Triage Nursing Assessment: Patient ambulated back to ER without difficulties. No SOB. Patient is alert and oriented. Current B/P 135/86. Abdomen soft with multiple bruises noted (patient states bruising is from lovenox injections). heart tones 160 with hand held doppler. Physician History: Patient is a 27-year-old 4 para 2 AB 1 at 17 weeks gestation who presents with a complaint of elevated blood pressure. She was working at [employer] when she took her blood pressure and found it to be 140/96. 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 Timing/Duration: today Severity: mild Allergies/Adverse Reactions: cephalexin [From Keflex] Allergy (Mild, Verified 08/28/22 12:01) Hives Penicillins Allergy (Mild, Verified 08/28/22 12:01) Hives sulfamethoxazole [From Bactrim] Allergy (Mild, Verified 08/28/22 12:01) Hives trimethoprim [From Bactrim] Allergy (Mild, Verified 08/28/22 12:01) Hives Home Medications: Vits W-Ca,Fe,FA(<1Mg) [] 1 tab PO HS 05/25/19 [History] Aspirin EC 81 mg [Ecotrin 81 mg] 81 mg PO BID 06/28/20 [History] Buspirone HCl 1 tab PO BID 08/28/22 [History] Enoxaparin Sodium [Enoxaparin Sodium] 30 mg SQ BID 08/28/22 [History] Levothyroxine Sodium [Levothyroxine] 1 tab PO DAILY 08/28/22 [History] Hx Tetanus, Diphtheria Vaccination/Date Given: Yes Hx Influenza Vaccination/Date Given: Yes Hx Pneumococcal Vaccination/Date Given: No Immunizations Up to Date: Yes Travel Risk - International Travel Have you traveled outside of the country in past 3 weeks: No - Coronavirus Screening Are you exhibiting any of the following symptoms?: No Close contact with a COVID-19 positive Pt in past 14-21 Days: No - Vaccine Status Have you recieved a Covid-19 vaccination: Yes Health Assessment And Treatment Teacher: [employer] - Vaccination Dates Date of 2cond Vaccination (if applicable): ? - Review of Systems Constitutional: No Fever, No Chills Eyes: No Symptoms Ears, Nose, & Throat: No Symptoms Respiratory: No Cough, No Dyspnea Cardiac: No Chest Pain, No Edema, No Syncope Abdominal/Gastrointestinal: No Abdominal Pain, No Nausea, No Vomiting, No Diarrhea Genitourinary Symptoms: No Dysuria Musculoskeletal: No Back Pain, No Neck Pain Skin: No Rash Neurological: No Dizziness, No Focal Weakness, No Sensory Changes Psychological: No Symptoms Endocrine: No Symptoms All Other Systems: Reviewed and Negative - Past Medical History Pertinent Past Medical History: Yes Neurological History: No Pertinent History ENT History: No Pertinent History Cardiac History: No Pertinent History Respiratory History: No Pertinent History Endocrine Medical History: Hypothyroidism Musculoskeletal History: No Pertinent History GI Medical History: No Pertinent History History: No Pertinent History Psycho-Social History: Anxiety Female Reproductive Disorders: No Pertinent History Other Medical History: pt has factor 5 blood disorder, states febrile seizures as a child - Past Surgical History Past Surgical History: Yes Neuro Surgical History: No Pertinent History Cardiac: No Pertinent History Respiratory: No Pertinent History Gastrointestinal: No Pertinent History Genitourinary: No Pertinent History Musculoskeletal: No Pertinent History Female Surgical History: Section Other Surgical History: X2 - Social History Smoking Status: Never smoker Exposure to second hand smoke: No Drug Use: none Patient Lives Alone: No - Female History Hx Now: Yes Gestational Age: 17 weeks - Nursing Vital Signs Nursing Vital Signs: Initial Vital Signs Temperature 98 F 08/28/22 12:02 Pulse Rate 109 H 08/28/22 12:02 Respiratory Rate 17 08/28/22 12:02 Blood Pressure 135/86 08/28/22 12:02 O2 Sat by Pulse Oximetry 100 08/28/22 12:02 Pain Scale Pain Intensity 0 - Physical Exam General Appearance: no apparent distress, alert Eye Exam: PERRL/EOMI, eyes nml inspection Ears, Nose, Throat Exam: normal ENT inspection, TMs normal, pharynx normal, moist mucous membranes Neck Exam: normal inspection, non-tender, supple, full range of motion Respiratory Exam: normal breath sounds, lungs clear, No respiratory distress Cardiovascular Exam: regular rate/rhythm, normal heart sounds, normal peripheral pulses Gastrointestinal/Abdomen Exam: soft, normal bowel sounds, other ( heart tones are 160), No tenderness, No mass Back Exam: normal inspection, normal range of motion, No CVA tenderness, No vertebral tenderness Extremity Exam: normal inspection, normal range of motion, pelvis stable Neurologic Exam: alert, oriented x 3, cooperative, normal mood/affect, nml cerebellar function, nml station & gait, sensation nml, No motor deficits Skin Exam: normal color, warm, dry, No rash Lymphatic Exam: No adenopathy SpO2: 98 - Course Nursing assessment & vital signs reviewed: Yes Ordered Tests: Active Orders 24 hr Category Date Time Status Heart Tones-ED STAT Care 08/28/22 12:10 Active CBC W DIFF Stat Lab 08/28/22 12:11 Completed CMP Stat Lab 08/28/22 12:43 Completed CULTURE,URINE Stat Lab 08/28/22 12:20 Received D-DIMER QUANTITATIVE Stat Lab 08/28/22 12:43 Completed FIBRINOGEN Stat Lab 08/28/22 12:43 Completed PROTIME WITH INR Stat Lab 08/28/22 12:43 Completed PTT Stat Lab 08/28/22 12:43 Completed TSH [TSH, 3RD Generation] Stat Lab 08/28/22 12:43 Completed UA W/RFX UR CULTURE Stat Lab 08/28/22 12:20 Completed Uric Acid Stat Lab 08/28/22 12:43 Completed Lab/Rad Data: Laboratory Result Diagrams 08/28/22 12:11 08/28/22 12:43 Laboratory Results 08/28/22 08/28/22 08/28/22 Range/Units 12:43 12:43 12:43 WBC (4.0-10.5) x10^3/uL RBC (4.1-5.4) x10^6/uL Hgb (12.0-16.0) g/dL Hct (35-47) % MCV (78-100) fL MCH (26-32) pg MCHC (32-36) g/dL RDW (11.5-14.0) % Plt Count (150-450) x10^3/uL MPV (7.5-11.0) fL Gran % (36.0-66.0) % Immature Gran % (Auto) (0.00-0.4) % Nucleat RBC Rel Count (0.00-0.1) % Eos # (Auto) (0-0.5) x10^3/uL Immature Gran # (Auto) (0.00-0.03) x10^3u/L Absolute Lymphs (auto) (1.0-4.6) x10^3/uL Absolute Monos (auto) (0.0-1.3) x10^3/uL Absolute Nucleated RBC (0.00-0.01) x10^3u/L Lymphocytes % (24.0-44.0) % Monocytes % (0.0-12.0) % Eosinophils % (0.00-5.0) % Basophils % (0.0-0.4) % Absolute Granulocytes (1.4-6.9) x10^3/uL Basophils # (0-0.4) x10^3/uL PT 10.0 (9.4-12.5) SECONDS INR 0.91 (0.8-3.0) APTT 27.1 (25.1-36.5) SECONDS Fibrinogen Activity 498 H (200-400) mg/dL D-Dimer 0.56 H (0.0-0.50) mg/L Sodium (137-145) mmol/L Potassium (3.5-5.1) mmol/L Chloride (98-107) mmol/L Carbon Dioxide (22-30) mmol/L Anion Gap (5-15) MEQ/L BUN (7-17) mg/dL Creatinine (0.52-1.04) mg/dL Estimated GFR ML/MIN Glucose (74-106) mg/dL Uric Acid (2.6-6.0) mg/dL Calcium (8.4-10.2) mg/dL Total Bilirubin (0.2-1.3) mg/dL AST (14-36) U/L ALT (0-35) U/L Alkaline Phosphatase (38-126) U/L Serum Total Protein (6.3-8.2) g/dL Albumin (3.5-5.0) g/dL TSH 3rd Generation 1.810 (0.47-4.68) mIU/L Urine Color (Yellow) Urine Appearance (Clear) Urine pH (4.6-8.0) Ur Specific [place] (1.005-1.030) Urine Protein (Negative) Urine Glucose (UA) (Negative) mg/dL Urine Ketones (Negative) Urine Blood (Negative) Urine Nitrite (Negative) Urine Bilirubin (Negative) Urine Urobilinogen (0.2) mg/dL Ur Leukocyte Esterase (Negative) Urine Microscopic RBC (0-5) /HPF Urine Microscopic WBC (0-5) /HPF Ur Epithelial Cells (None Seen) /HPF Calcium Oxalate Crystal (None Seen) /HPF Urine Bacteria (None Seen) /HPF Urine Culture Reflexed (NO) 08/28/22 08/28/22 08/28/22 Range/Units 12:43 12:20 12:11 WBC 11.7 H (4.0-10.5) x10^3/uL RBC 4.17 (4.1-5.4) x10^6/uL Hgb 11.5 L (12.0-16.0) g/dL Hct 34.4 L (35-47) % MCV 82.5 (78-100) fL MCH 27.6 (26-32) pg MCHC 33.4 (32-36) g/dL RDW 14.0 (11.5-14.0) % Plt Count 261 (150-450) x10^3/uL MPV 10.7 (7.5-11.0) fL Gran % 78.3 H (36.0-66.0) % Immature Gran % (Auto) 0.6 H (0.00-0.4) % Nucleat RBC Rel Count 0.0 (0.00-0.1) % Eos # (Auto) 0.04 (0-0.5) x10^3/uL Immature Gran # (Auto) 0.07 H (0.00-0.03) x10^3u/L Absolute Lymphs (auto) 1.69 (1.0-4.6) x10^3/uL Absolute Monos (auto) 0.70 (0.0-1.3) x10^3/uL Absolute Nucleated RBC 0.00 (0.00-0.01) x10^3u/L Lymphocytes % 14.5 L (24.0-44.0) % Monocytes % 6.0 (0.0-12.0) % Eosinophils % 0.3 (0.00-5.0) % Basophils % 0.3 (0.0-0.4) % Absolute Granulocytes 9.15 H (1.4-6.9) x10^3/uL Basophils # 0.03 (0-0.4) x10^3/uL PT (9.4-12.5) SECONDS INR (0.8-3.0) APTT (25.1-36.5) SECONDS Fibrinogen Activity (200-400) mg/dL D-Dimer (0.0-0.50) mg/L Sodium 136 L (137-145) mmol/L Potassium 4.0 (3.5-5.1) mmol/L Chloride 104 (98-107) mmol/L Carbon Dioxide 25 (22-30) mmol/L Anion Gap 11.3 (5-15) MEQ/L BUN 10 (7-17) mg/dL Creatinine 0.43 L (0.52-1.04) mg/dL Estimated GFR > 60.0 ML/MIN Glucose 92 (74-106) mg/dL Uric Acid 4.5 (2.6-6.0) mg/dL Calcium 8.9 (8.4-10.2) mg/dL Total Bilirubin 0.40 (0.2-1.3) mg/dL AST 16 (14-36) U/L ALT 14 (0-35) U/L Alkaline Phosphatase 88 (38-126) U/L Serum Total Protein 7.3 (6.3-8.2) g/dL Albumin 3.8 (3.5-5.0) g/dL TSH 3rd Generation (0.47-4.68) mIU/L Urine Color Yellow (Yellow) Urine Appearance Cloudy A (Clear) Urine pH 5.0 (4.6-8.0) Ur Specific [place] >=1.030 A (1.005-1.030) Urine Protein Negative (Negative) Urine Glucose (UA) Negative (Negative) mg/dL Urine Ketones Trace A (Negative) Urine Blood Negative (Negative) Urine Nitrite Negative (Negative) Urine Bilirubin Negative (Negative) Urine Urobilinogen 0.2 (0.2) mg/dL Ur Leukocyte Esterase Moderate A (Negative) Urine Microscopic RBC 0-2 (0-5) /HPF Urine Microscopic WBC 6-10 A (0-5) /HPF Ur Epithelial Cells Moderate A (None Seen) /HPF Calcium Oxalate Crystal 11-25 A (None Seen) /HPF Urine Bacteria Rare A (None Seen) /HPF Urine Culture Reflexed YES (NO) - Progress Progress: improved Progress Note: 08/28/22 13:52 After work-up patient's doctor Dr. Niño he was contacted and all results reviewed she will be discharged to follow-up in the office. Medical Desision Making - Discussion of managment Care discussed with:: specialist ( While he CREW MANAGER consulted) Reviewed:: Test results Agreed on:: Treatment plan Will see patient: In office - Diagnostic Testing Diagnostic test were ordered, analyzed, and reviewed by me: Yes Radiological Interpretation: Interpreted by me, Reviewed by me - Risk of complications Low Risk: Low risk of morbidity from additional dx testing or treatment - Departure Departure Disposition: Home Clinical Impression: Gestational hypertension Condition: Stable Critical Care Time: No Referrals: MARISOL DUDLEY NP [Primary Care Provider] - Follow up/PCP as directed Instructions: High Blood Pressure and
== END 2022-08-28 14:05 | disposition home or self-care (01) ==
LOC: ED 11:52
DX: O13.2 Gestational [pregnancy-induced] hypertension without significant proteinuria, second trimester (principal); Z3A.17 17 weeks gestation of pregnancy; O99.112 Other diseases of the blood and blood-forming organs and certain disorders involving the immune mechanism complicating pregnancy, second trimester; D68.51 Activated protein C resistance; Z79.01 Long term (current) use of anticoagulants; Z79.899 Other long term (current) drug therapy
CPT/HCPCS: 36415; 80053; 81001; 84443; 84550; 85025; 85379; 85384; 85610; 85730; 87086; 99283

== ENCOUNTER 2022-12-21 17:51 | Observation (INO) | payer OTHER ==
[2022-12-21] MEDS ORDERED: Lactated Ringers 1,000 ML IV SCH (19:00)
[2022-12-21] MEDS ORDERED: Lactated Ringers 1,000 ML IV ONE (19:11)
[2022-12-21 21:18] VITALS: BP 112/62; PULSE 96; O2SAT 98
[2022-12-21] MEDS ORDERED: Zofran 4 MG/2 ML VIAL IV STA (21:30)
== END 2022-12-21 22:13 | disposition home or self-care (01) ==
LOC: OB 17:51
PROVIDERS: ADMIT Obstetrics & Gynecology; ATTEND Obstetrics & Gynecology
DX: Z34.83 Encounter for supervision of other normal pregnancy, third trimester (principal); Z3A.33 33 weeks gestation of pregnancy
CPT/HCPCS: G0378; G0379

== ENCOUNTER 2023-01-23 03:46 | Inpatient (IN) | payer BC, OTHER ==
[~2023-01-23 03:46] MED LIST changes: +Adacel Vial IM ONE; +Dermoplast Spray TP PRN; +LANSINOH 40 GM TOP PRN; +Lactated Ringers 1,000 ML IV ONE; +Mylicon 80MG PO PRN; +NORCO 5/325 MG PO PRN; +Pepcid 20 MG VIAL IV SCH; +Reglan 10 MG/2 ML IV SCH; +Restoril 15 MG PO PRN; +Rhogam Plus 300 MCG IM ONE; +SOD CITRATE-CITRIC ACID SOLN PO SCH; +TUCKS TP PRN
[2023-01-23] MEDS ORDERED: MORPHINE SULFATE 2 MG INJ IV PRN (03:53)
[2023-01-23] MEDS ORDERED: PERCOCET TABLET 5/325MG PO PRN (03:53)
[2023-01-23] MEDS ORDERED: CLARITIN 10 MG PO PRN (03:53)
[2023-01-23] MEDS ORDERED: BENADRYL 50 MG/ML IV PRN (03:53)
[2023-01-23] MEDS ORDERED: Nubain 10 MG/ML IV PRN (03:53)
[2023-01-23] MEDS ORDERED: Zofran 4 MG/2 ML VIAL IV PRN (03:53)
[2023-01-23] MEDS ORDERED: Narcan 0.4 MG/ML IV PRN (05:00)
[2023-01-23] MEDS ORDERED: EXPAREL 133 MG/10 ML VIAL IJ ONE (05:04)
[2023-01-23 05:43] LABS: Hematocrit 30.8 % (35-47); Hemoglobin 10.1 g/dL (12.0-16.0); Mean Cell Volume 82.6 fL (78-100); Mean Corpuscular Hemoglobin 27.1 pg (26-32); Mean Corpuscular Hgb Concent. 32.8 g/dL (32-36); Platelet Count 228 x10^3/uL (150-450); Red Blood Count 3.73 x10^6/uL (4.1-5.4); Red Cell Distribution Width 15.4 % (11.5-14.0); White Blood Count 11.2 x10^3/uL (4.0-10.5)
[2023-01-23 05:59] LABS: INR 0.86 (0.8-3.0); PROTIME 9.5 SECONDS (9.4-12.5); PTT 21.4 SECONDS (25.1-36.5)
[2023-01-23 06:04] LABS: Bilirubin Negative (Negative); Blood Negative (Negative); Glucose, Urine Negative (Negative); Hyaline Casts NONE SEEN /LPF (0-2); Ketones Negative (Negative); Nitrite Negative (Negative); Ph 5.5 (4.6-8.0); Protein,Urine Dip Negative (Negative); RBC 0-2 /HPF (0-5); Urobilinogen 0.2 mg/dL (0.2)
[2023-01-23 06:13] LABS: Amphetamine,Urine NEGATIVE (NEGATIVE); Barbiturate,Urine NEGATIVE (NEGATIVE); Benzodiazepine,Urine NEGATIVE (NEGATIVE); Cocaine,Urine NEGATIVE (NEGATIVE); Methadone,Urine NEGATIVE (NEGATIVE); Opiate,Urine NEGATIVE (NEGATIVE); PCP,Urine NEGATIVE (NEGATIVE); THC,Urine NEGATIVE (NEGATIVE)
[2023-01-23 06:17] LABS: Leukocyte Esterase Small (Negative)
[2023-01-23 06:19] LABS: ABO TYPING O; RH TYPING NEGATIVE
[2023-01-23 06:20] LABS: Antibody Screen NEGATIVE (NEGATIVE)
[2023-01-23 06:54] LABS: Appearance CLEAR (Clear); Bacteria Few /HPF (None Seen)
[2023-01-23 06:55] LABS: ADD URINE CULTURE? YES (NO); Epithelial Cells Few /HPF (None Seen)
[2023-01-23] MEDS ORDERED: Astramorph-Pf 5 MG/10 ML ONE (07:39)
[2023-01-23] MEDS ORDERED: Pitocin 10 UNITS/ML ONE (07:41)
[2023-01-23] MEDS ORDERED: PHENYLEPHRINE HCL ONE (07:41)
[2023-01-23] MEDS ORDERED: OFIRMEV 100 ML IV ONE (07:47)
[2023-01-23] MEDS ORDERED: Sensorcaine 0.25% 10 ML ONE (07:47)
[2023-01-23] MEDS ORDERED: Dextrose 5%-Lr IV Solution 1000 ML 1,000 ML IV SCH (08:00)
[2023-01-23] MEDS ORDERED: Ephedrine Sulfate 50 MG/ML ONE (08:28)
[2023-01-23] MEDS ORDERED: Lactated Ringers 1,000 ML IV ONE (08:32)
[2023-01-23] MEDS ORDERED: Versed 2 MG/2 ML Injection ONE (08:44)
[2023-01-23] MEDS ORDERED: SUBLIMAZE 100 MCG/2 ML ONE (08:49)
[2023-01-23] MEDS ORDERED: TRANDATE 20 MG/4 ML SYRINGE IV ONE (09:04)
[2023-01-23] MEDS ORDERED: DEMEROL 50 MG ONE (09:33)
[2023-01-23] MEDS: MOTRIN 400 MG PO PRN (13:21)
[2023-01-23 14:56] LABS: Appearance Cloudy (Clear); Bacteria None Seen /HPF (None Seen); Bilirubin Negative (Negative); Blood Small (Negative); Epithelial Cells None Seen /HPF (None Seen); Glucose, Urine Negative (Negative); Hyaline Casts NONE SEEN /LPF (0-2); Ketones Negative (Negative); Leukocyte Esterase Negative (Negative); Nitrite Negative (Negative); Ph 7.5 (4.6-8.0); Protein,Urine Dip Negative (Negative); Specific Gravity 1.015 (1.005-1.030); Urobilinogen 0.2 mg/dL (0.2)
[2023-01-23] MEDS: ENOXAPARIN SODIUM SQ SCH (19:00)
[2023-01-23] MEDS: TYLENOL EXTRA STRENGTH 500 MG PO PRN (20:09)
[2023-01-23] MEDS: CLINDAMYCIN-D5W 900 MG/50 ML*** 900 MG/50 ML BAG IV SCH (21:52)
[2023-01-23] MEDS: Docusate Sodium 100 MG PO SCH ×2 (21:52→22:01)
[2023-01-24] MEDS: MOTRIN 400 MG PO PRN ×3 (02:02→20:56)
[2023-01-24 04:35] LABS: Absolute Neutrophil Ct (ANC) 10.53 x10^3/uL (1.4-6.9); BASOPHIL % 0.2 % (0.0-0.4); Basophil (Absolute #) 0.03 x10^3/uL (0-0.4); Eosinophil % 1.3 % (0.00-5.0); Eosinophil (Absolute #) 0.18 x10^3/uL (0-0.5); Hematocrit 30.2 % (35-47); Hemoglobin 9.9 g/dL (12.0-16.0); IMMATURE GRAN # 0.15 x10^3u/L (0.00-0.03); IMMATURE GRAN % 1.1 % (0.00-0.4); Lymphocyte (Absolute #) 1.72 x10^3/uL (1.0-4.6); Lymphocytes % 12.2 % (24.0-44.0); Mean Corpuscular Hemoglobin 27.2 pg (26-32); Mean Corpuscular Hgb Concent. 32.8 g/dL (32-36); Mean Platelet Volume 10.5 fL (7.5-11.0); Monocyte (Absolute #) 1.45 x10^3/uL (0.0-1.3); Monocytes % 10.3 % (0.0-12.0); Neutrophil % 74.9 % (36.0-66.0); Platelet Count 201 x10^3/uL (150-450); Red Blood Count 3.64 x10^6/uL (4.1-5.4); Red Cell Distribution Width 15.6 % (11.5-14.0); White Blood Count 14.1 x10^3/uL (4.0-10.5)
[2023-01-24] MEDS: CLINDAMYCIN-D5W 900 MG/50 ML*** 900 MG/50 ML BAG IV SCH (06:28)
--- NOTE | 2023-01-24 06:40 | PCM.NOTE ---
Date and Time: 01/24/2337 Subjective Assessment: pod 1 sp csection pt resting in bed and doing well. pt ambulating and tolerating diet vss afebrile abd; soft, dressing intact with minimal soiling uterus; firm lochia; mild hgb; 9.9 a/p sp csection pod 1 will anticipate discharge tomorrow will continue sertraline OBJECTIVE DATA Vital Signs: Vital Signs - 24 hr Temp Pulse Resp BP BP Pulse Ox 01/24/23 04:00 97.8 F 90 20 110/69 98 01/24/23 00:00 97.9 F 95 H 18 109/64 99 01/23/23 20:00 98.1 F 109 H 18 120/70 99 01/23/23 17:00 98.4 F 112 H 18 100 01/23/23 16:00 100 01/23/23 15:00 100 01/23/23 14:00 100 01/23/23 13:00 98.3 F 106 H 18 121/62 100 01/23/23 12:08 98.3 F 109 H 18 110/55 100 01/23/23 12:00 98.3 F 108 H 18 105/58 100 01/23/23 11:18 98.3 F 111 H 18 126/67 100 01/23/23 11:15 98.3 F 111 H 18 126/67 100 01/23/23 11:00 98.3 F 111 H 18 128/65 100 01/23/23 10:47 98.4 F 100 H 18 136/78 98 01/23/23 10:33 98.2 F 106 H 18 131/71 96 01/23/23 10:15 98.3 F 93 H 18 125/74 100 01/23/23 10:12 98 F 106 H 18 126/67 100 01/23/23 07:32 98.2 F 105 H 17 127/65 99 01/23/23 07:24 98.2 F 105 H 17 127/65 99 Pain Assessment - Last Documented Pain Intensity [Lower] 3 Pain Intensity 0 Pain Scale Used 0-10 Pain Scale Intake and Output: Intake & Output 01/21/23 01/22/23 01/23/23 01/24/23 11:59 11:59 11:59 11:59 Intake Total 1050 2050 Output Total 800 Balance 1050 1250 Weight 96.162 kg Lab Results: Lab Results-Last 24 Hours 01/23/23 01/23/23 01/23/23 Range/Units 03:20 05:10 13:15 WBC (4.0-10.5) x10^3/uL RBC (4.1-5.4) x10^6/uL Hgb (12.0-16.0) g/dL Hct (35-47) % MCV (78-100) fL MCH (26-32) pg MCHC (32-36) g/dL RDW (11.5-14.0) % Plt Count (150-450) x10^3/uL MPV (7.5-11.0) fL Gran % (36.0-66.0) % Immature Gran % (Auto) (0.00-0.4) % Nucleat RBC Rel Count (0.00-0.1) % Eos # (Auto) (0-0.5) x10^3/uL Immature Gran # (Auto) (0.00-0.03) x10^3u/L Absolute Lymphs (auto) (1.0-4.6) x10^3/uL Absolute Monos (auto) (0.0-1.3) x10^3/uL Absolute Nucleated RBC (0.00-0.01) x10^3u/L Lymphocytes % (24.0-44.0) % Monocytes % (0.0-12.0) % Eosinophils % (0.00-5.0) % Basophils % (0.0-0.4) % Absolute Granulocytes (1.4-6.9) x10^3/uL Basophils # (0-0.4) x10^3/uL Urine Color Yellow Yellow (Yellow) Urine Appearance CLEAR Cloudy A (Clear) Urine pH 5.5 7.5 (4.6-8.0) Ur Specific [place] 1.020 1.015 (1.005-1.030) Urine Protein Negative Negative (Negative) Urine Glucose (UA) Negative Negative (Negative) mg/dL Urine Ketones Negative Negative (Negative) Urine Blood Negative Small A (Negative) Urine Nitrite Negative Negative (Negative) Urine Bilirubin Negative Negative (Negative) Urine Urobilinogen 0.2 0.2 (0.2) mg/dL Ur Leukocyte Esterase Small A Negative (Negative) U Hyaline Cast (Auto) NONE SEEN NONE SEEN (0-2) /LPF Urine Microscopic RBC 0-2 11-20 A (0-5) /HPF Urine Microscopic WBC 6-10 A 6-10 A (0-5) /HPF Ur Epithelial Cells Few None Seen (None Seen) /HPF Urine Bacteria Few A None Seen (None Seen) /HPF Urine Culture Reflexed YES (NO) Urine Opiates Level NEGATIVE (NEGATIVE) Ur Methadone NEGATIVE (NEGATIVE) Urine Barbiturates NEGATIVE (NEGATIVE) Ur Phencyclidine (PCP) NEGATIVE (NEGATIVE) Urine Amphetamine NEGATIVE (NEGATIVE) U Benzodiazepine Level NEGATIVE (NEGATIVE) Urine Cocaine NEGATIVE (NEGATIVE) Urine Marijuana (THC) NEGATIVE (NEGATIVE) 01/24/23 Range/Units 04:29 WBC 14.1 H (4.0-10.5) x10^3/uL RBC 3.64 L (4.1-5.4) x10^6/uL Hgb 9.9 L (12.0-16.0) g/dL Hct 30.2 L (35-47) % MCV 83.0 (78-100) fL MCH 27.2 (26-32) pg MCHC 32.8 (32-36) g/dL RDW 15.6 H (11.5-14.0) % Plt Count 201 (150-450) x10^3/uL MPV 10.5 (7.5-11.0) fL Gran % 74.9 H (36.0-66.0) % Immature Gran % (Auto) 1.1 H (0.00-0.4) % Nucleat RBC Rel Count 0.0 (0.00-0.1) % Eos # (Auto) 0.18 (0-0.5) x10^3/uL Immature Gran # (Auto) 0.15 H (0.00-0.03) x10^3u/L Absolute Lymphs (auto) 1.72 (1.0-4.6) x10^3/uL Absolute Monos (auto) 1.45 H (0.0-1.3) x10^3/uL Absolute Nucleated RBC 0.00 (0.00-0.01) x10^3u/L Lymphocytes % 12.2 L (24.0-44.0) % Monocytes % 10.3 (0.0-12.0) % Eosinophils % 1.3 (0.00-5.0) % Basophils % 0.2 (0.0-0.4) % Absolute Granulocytes 10.53 H (1.4-6.9) x10^3/uL Basophils # 0.03 (0-0.4) x10^3/uL Urine Color (Yellow) Urine Appearance (Clear) Urine pH (4.6-8.0) Ur Specific [place] (1.005-1.030) Urine Protein (Negative) Urine Glucose (UA) (Negative) mg/dL Urine Ketones (Negative) Urine Blood (Negative) Urine Nitrite (Negative) Urine Bilirubin (Negative) Urine Urobilinogen (0.2) mg/dL Ur Leukocyte Esterase (Negative) U Hyaline Cast (Auto) (0-2) /LPF Urine Microscopic RBC (0-5) /HPF Urine Microscopic WBC (0-5) /HPF Ur Epithelial Cells (None Seen) /HPF Urine Bacteria (None Seen) /HPF Urine Culture Reflexed (NO) Urine Opiates Level (NEGATIVE) Ur Methadone (NEGATIVE) Urine Barbiturates (NEGATIVE) Ur Phencyclidine (PCP) (NEGATIVE) Urine Amphetamine (NEGATIVE) U Benzodiazepine Level (NEGATIVE) Urine Cocaine (NEGATIVE) Urine Marijuana (THC) (NEGATIVE) Multi-Disciplinary Progress Notes: Multi-Disciplinary Progress Notes 01/23/23 09:00 Respiratory Note by Alida Ugalde for . Warm, dry, stimulate baby. At 0844 gave cpap for poor color and wet sounding lungs. After 1 minute baby was pinking up and cpap was discontinued. Initialized on 01/23/23 09:00 - END OF NOTE Assessment/Plan (1) Status post repeat low transverse section Current Visit: Yes Status: Acute Code(s): Z98.891 - HISTORY OF UTERINE SCAR FROM PREVIOUS SURGERY
[2023-01-24] MEDS: TYLENOL EXTRA STRENGTH 500 MG PO PRN ×2 (09:11→17:25)
[2023-01-24] MEDS: Docusate Sodium 100 MG PO SCH ×3 (09:14→22:00)
[2023-01-24] MEDS: FERREX 150 PO SCH ×2 (09:14→20:58)
[2023-01-24] MEDS: ENOXAPARIN SODIUM SQ SCH (11:54)
[2023-01-24] MEDS: ZOLOFT 50 MG TABLET PO SCH (11:54)
[2023-01-24] MEDS ORDERED: NON-FORMULARY ITEM (Prenatal Vits W-Ca,Fe,Fa(<1mg) [Prenatal] 1 EACH Tablet) PO SCH (22:00)
[2023-01-24] MEDS ORDERED: THERAGRAN MULTIVITAMIN PO SCH (22:00)
[2023-01-25] MEDS: TYLENOL EXTRA STRENGTH 500 MG PO PRN ×2 (01:09→09:55)
[2023-01-25 04:07] VITALS: TEMP 97.8
[2023-01-25] MEDS: MOTRIN 400 MG PO PRN ×2 (05:45→13:30)
--- NOTE | 2023-01-25 07:14 | PCM.NOTE ---
Date and Time: 01/25/23 0711 Subjective Assessment: pod 2 sp csection pt resting in bed and doing well able to ambulate and tolerate diet. vss afebrile abd; soft, incision with dressing intact with minimal soiling uterus; firm lochia; mild a/p sp csection pod 2 dc home today fu office next sunday OBJECTIVE DATA Vital Signs: Vital Signs - 24 hr Temp Pulse Resp BP BP Pulse Ox 01/25/23 03:30 97.8 F 83 20 109/56 98 01/24/23 20:00 97.7 F 86 18 132/84 98 01/24/23 16:00 98.8 F 96 H 16 120/79 98 01/24/23 12:00 98.8 F 94 H 16 120/61 98 01/24/23 08:00 98.8 F 94 H 16 120/61 98 Pain Assessment - Last Documented Pain Intensity [Lower] 2 Pain Intensity 4 Pain Scale Used 0-10 Pain Scale Intake and Output: Intake & Output 01/22/23 01/23/23 01/24/23 01/25/23 11:59 11:59 11:59 11:59 Intake Total 1050 2050 350 Output Total 800 Balance 1050 1250 350 Weight 96.162 kg Assessment/Plan (1) Status post repeat low transverse section Current Visit: Yes Status: Acute Code(s): Z98.891 - HISTORY OF UTERINE SCAR FROM PREVIOUS SURGERY (2) Factor 5 Leiden mutation, heterozygous Current Visit: Yes Status: Acute Code(s): D68.51 - ACTIVATED PROTEIN C RESISTANCE (3) Chronic hypertension affecting Current Visit: Yes Status: Acute Code(s): O10.919 - UNSP PRE-EXISTING HTN COMP , UNSP TRIMESTER
--- NOTE | 2023-01-25 07:18 | PCM.DS ---
Discharge Summary Date of Admission: 01/23/23 05:03 Admitting Physician: MARY JUARES DO Consults: Consults on Case 01/23/23 03:20 Notify Physician OF ADMISSION 01/23/23 03:53 Notify Anesthesia Provider PRN 01/23/23 15:34 Navigation ONCE Primary Care Provider: MARISOL DUDLEY NP Allergies Allergies cephalexin [From Keflex] Allergy (Mild, Verified 01/23/23 06:20) Hives Penicillins Allergy (Mild, Verified 01/23/23 06:20) Hives sulfamethoxazole [From Bactrim] Allergy (Mild, Verified 01/23/23 06:20) Hives trimethoprim [From Bactrim] Allergy (Mild, Verified 01/23/23 06:20) [facility] Summary - Hospital Course Hospital Course: pt admitted on january 23 for repeat csection at 38 3/7 wks gestation for hx of chronic htn, small for gestational age, factor 5 leiden heterozygous condition and underwent procedure without complication. pt able to ambulate and tolerate diet. pt currently on lovenox 40mg daily and motrin and tylenol for pain management. incision intact and hgb stable at 9.9. pt at this time stable for discharge and advised to fu in office in 1 wk for incision check. all questions answered to her satisfaction and denies complaints at this time. - Vitals & Intake/Output Vital Signs: Vital Signs Temperature 97.8 F 01/25/23 03:30 Pulse Rate 83 01/25/23 03:30 Respiratory Rate 20 01/25/23 03:30 Blood Pressure 109/56 01/25/23 03:30 O2 Sat by Pulse Oximetry 98 01/25/23 03:30 Intake & Output: Intake & Output 01/22/23 01/23/23 01/24/23 01/25/23 11:59 11:59 11:59 11:59 Intake Total 1050 2050 350 Output Total 800 Balance 1050 1250 350 Weight 96.162 kg - Lab Result Diagrams: 01/24/23 04:29 Micro Results-Entire Visit: Microbiology 01/23/23 13:15 Urine Culture - Preliminary Catherized NO GROWTH TO DATE 01/23/23 03:20 Urine Culture - Final Clean Catch Midstream <10K NORMAL SKIN ELY PROBABLE SKIN CONTAMINANT - Procedures and Test Procedures and Tests throughout Hospitalization: Therapy Orders & Screens 01/23/23 08:59 Standby ROUTINE Comment: Diagnosis: Repeat section Final Diagnosis/Problem List - Final Discharge Diagnosis/Problem (1) Status post repeat low transverse section Current Visit: Yes Status: Acute Code(s): Z98.891 - HISTORY OF UTERINE SCAR FROM PREVIOUS SURGERY (2) Factor 5 Leiden mutation, heterozygous Current Visit: Yes Status: Acute Code(s): D68.51 - ACTIVATED PROTEIN C RESISTANCE (3) Chronic hypertension affecting Current Visit: Yes Status: Acute Code(s): O10.919 - UNSP PRE-EXISTING HTN COMP , UNSP TRIMESTER - Discharge Disposition: Home, Self-Care Condition: Stable Prescriptions: New Enoxaparin Sodium [Lovenox] 40 mg SQ DAILY #30 No Action Vits W-Ca,Fe,FA(<1Mg) [] 1 tab PO HS Levothyroxine Sodium [Levothyroxine] 1 tab PO DAILY Labetalol HCl 100 mg [Trandate 100 MG] 50 mg PO BID Sertraline HCl 50 mg [Zoloft 50 mg Tablet] 50 mg PO DAILY Enoxaparin Sodium [Enoxaparin Sodium] 40 mg SQ DAILY Follow up with: MARISOL DUDLEY NP [Primary Care Provider] - MARY JUARES DO [ACTIVE STAFF] - 1 Week
--- NOTE | 2023-01-25 09:19 | OP ---
SURGERY DATE/TIME: 01/23/2023 0804 PREOPERATIVE DIAGNOSIS: Intrauterine at 38 weeks and 3 days gestation with chronic hypertension, Factor V Leiden, heterozygous, previous section x2 and small for gestational age baby. POSTOPERATIVE DIAGNOSIS: Intrauterine at 38 weeks and 3 days gestation with chronic hypertension, Factor V Leiden, heterozygous, previous section x2 and small for gestational age baby. PROCEDURE: Repeat section, low flap transverse uterine incision, Pfannenstiel skin incision. SURGEON: Arturo Montoya D.O. [employer]OR: Amisha Lowe, director surgical. ANESTHESIA: Spinal. QUANTITATIVE ESTIMATED BLOOD LOSS: 513 cc. COMPLICATIONS: None. INDICATIONS: The risks, benefits, indications and alternatives of the procedure were reviewed with the patient prior to procedure. The patient understood the risk of infection, bleeding, bowel injury, bladder injury, ureteral injury, pelvic infection, thromboembolic disorder associated with the surgery and desires to have this surgery as a possible means to alleviate her current medical condition. DESCRIPTION OF PROCEDURE AND FINDINGS: At this point the patient is taken to the operating room where her spinal anesthesia was found to be adequate. She was then prepared and draped in normal sterile fashion in the dorsal supine position with a leftward tilt. A Pfannenstiel skin incision is made with a scalpel and carried through to the underlying layer of the fascia with a Bovie. The fascia was then incised in the midline and the incision extended laterally with Martinez scissors. The superior aspect of the fascial incision was then grasped Marleny clamps elevated and the underlying rectus muscles dissected off bluntly. Attention is then turned to the inferior aspect of this incision which in similar fashion was grasped, tented up with the Marleny clamps and the rectus muscles dissected off bluntly. The rectus muscles were then at the midline and the peritoneum identified, tented up and entered sharply with Metzenbaum scissors. The peritoneal incision was then extended superiorly and inferiorly with good visualization of the bladder. The bladder blade was then inserted and the vesicouterine peritoneum identified, grasped with a pickup and entered sharply with Metzenbaum scissors. This incision was then extended laterally and the bladder flap created digitally. The bladder blade was then re-inserted and the lower uterine segment incised in transverse fashion with a scalpel. The uterine incision was then extended laterally with bandage scissors. The bladder blade was then removed and the infants head was delivered atraumatically. The nose and mouth were suctioned with bulb suction and the cord clamped and cut. The was then handed off to the awaiting nurses. The placenta was then removed manually. The uterus exteriorized and cleared of all clots and debris. The uterine incision was repaired with 1-0 chromic in a running locked fashion. A second layer of the same suture was used to obtain excellent hemostasis. The uterus is then returned to the abdomen and the gutters were cleared of all clots. The peritoneal muscles closed in interrupted fashion using 2-0 chromic suture. The fascia was re-approximated with 0 Vicryl in running fashion. The subcutaneous layer was closed with 3-0 Vicryl suture and the skin was closed with absorbable triston called INSORB. The patient tolerated the procedure well. Sponge, lap, needle and instrument counts were correct x2. The patient was then taken to the recovery room in stable condition. The patient delivered a live baby boy at 0841 hours. 's 9 at 1 minute and 9 at 5 minutes.
[2023-01-25 09:44] VITALS: BP 121/78; PULSE 78; RESP 18; O2SAT 100
[2023-01-25] MEDS: FERREX 150 PO SCH (09:55)
[2023-01-25] MEDS: Docusate Sodium 100 MG PO SCH (09:56)
[2023-01-25] MEDS: ENOXAPARIN SODIUM SQ SCH (10:14)
[2023-01-25] MEDS: ZOLOFT 50 MG TABLET PO SCH (10:14)
== END 2023-01-25 14:12 | disposition home or self-care (01) | DRG 787 ==
LOC: OBSVTOIN 05:03 → MED SURG 05:03
PROVIDERS: ADMIT Obstetrics & Gynecology; ATTEND Obstetrics & Gynecology
PROC: 10D00Z1 Extraction of Products of Conception, Low, Open Approach (ICD-10-PCS; principal; 2023-01-23)
DX: O10.02 Pre-existing essential hypertension complicating childbirth (principal); D68.51 Activated protein C resistance; Z3A.38 38 weeks gestation of pregnancy; Z37.0 Single live birth; Z20.828 Contact with and (suspected) exposure to other viral communicable diseases; Z98.891 History of uterine scar from previous surgery
CPT/HCPCS: 36415; 62322; 64488; 76937; 76942; 80307; 81001; 85025; 85027; 85610; 85730; 86850; 86900; 86901; 87086; 90471; 90715; 94799; J1200; J1650; J2175; J2250; J2274; J2370; J2590; J3010; L0625; A9270-GY

== ENCOUNTER 2024-01-03 18:58 | Emergency (ER) | payer MEDICAID ==
[2024-01-03 19:19] VITALS: TEMP 98.4
[2024-01-03 19:20] LABS: Absolute Neutrophil Ct (ANC) 8.11 x10^3/uL (1.56-6.13); BASOPHIL % 0.2 % (0.1-1.2); Basophil (Absolute #) 0.02 x10^3/uL (0.01-0.08); Eosinophil % 0.6 % (0.7-5.8); Eosinophil (Absolute #) 0.06 x10^3/uL (0.04-0.36); Hematocrit 33.9 % (34.1-44.9); Hemoglobin 11.8 g/dL (11.2-15.7); IMMATURE GRAN # 0.04 x10^3u/L (0.001-0.031); IMMATURE GRAN % 0.4 % (0.001-0.429); Lymphocyte (Absolute #) 1.78 x10^3/uL (1.18-3.74); Lymphocytes % 16.5 % (19.3-51.7); Mean Cell Volume 81.7 fL (79.4-94.8); Mean Corpuscular Hemoglobin 28.4 pg (25.6-32.2); Mean Corpuscular Hgb Concent. 34.8 g/dL (32.2-35.5); Mean Platelet Volume 11.4 fL (9.4-12.3); Monocyte (Absolute #) 0.75 x10^3/uL (0.24-0.86); Neutrophil % 75.3 % (34.0-71.1); Platelet Count 215 x10^3/uL (182-369); Red Blood Count 4.15 x10^6/uL (3.93-5.22); Red Cell Distribution Width 13.2 % (11.7-14.4); White Blood Count 10.8 x10^3/uL (3.98-10.04)
--- NOTE | 2024-01-03 19:27 | ERPHSYRPT ---
- History of Present Illness Time Seen by Provider: 01/03/24 18:58 Historian: patient Exam Limitations: no limitations Patient Subjective Stated Complaint: Chest pain Triage Nursing Assessment: Patient ambulated back to ED and transferred self to bed. Patient A+O X 3. Patient's skin pink, warm and dry. Patient is currently 14 weeks and has factor 5. Patient states around 10 am she started having left sided chest, shoulder and back pain 6/10. Patient states her pain increases when she takes a deep breath. 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 Patient denies any palpitations, fever chills or cough. Does reports having similar symptoms in pr evious with pneumonia. No abdominal/pelvic pain/cramping, vaginal bleeding or discharge. Aspirin Treatment Today: no aspirin today Allergies/Adverse Reactions: cephalexin [From Keflex] Allergy (Mild, Verified 01/03/24 19:04) Hives Penicillins Allergy (Mild, Verified 01/03/24 19:04) Hives sulfamethoxazole [From Bactrim] Allergy (Mild, Verified 01/03/24 19:04) Hives trimethoprim [From Bactrim] Allergy (Mild, Verified 01/03/24 19:04) Hives Home Medications: Vits W-Ca,Fe,FA(<1Mg) [] 1 tab PO HS 05/25/19 [History] Sertraline HCl 50 mg [Zoloft 50 mg Tablet] 50 mg PO DAILY 01/23/23 [History] Enoxaparin Sodium [Lovenox] 1 vial SQ BID 01/03/24 [History] Hx Tetanus, Diphtheria Vaccination/Date Given: Yes Hx Influenza Vaccination/Date Given: Yes Hx Pneumococcal Vaccination/Date Given: No Immunizations Up to Date: Yes Travel Risk - International Travel Have you traveled outside of the country in past 3 weeks: No - Emerging Infectious Disease Are you exhibiting symptoms associated with any current EIDs: No - Review of Systems Constitutional: No Symptoms Eyes: No Symptoms Ears, Nose, & Throat: No Symptoms Respiratory: No Symptoms Cardiac: Chest Pain Abdominal/Gastrointestinal: No Symptoms Genitourinary Symptoms: Musculoskeletal: No Symptoms Skin: No Symptoms Neurological: No Symptoms Psychological: No Symptoms Endocrine: No Symptoms Hematologic/Lymphatic: No Symptoms Immunological/Allergic: No Symptoms - Past Medical History Pertinent Past Medical History: Yes Neurological History: No Pertinent History ENT History: No Pertinent History Cardiac History: No Pertinent History Respiratory History: No Pertinent History Endocrine Medical History: Hypothyroidism Musculoskeletal History: No Pertinent History GI Medical History: No Pertinent History History: No Pertinent History Psycho-Social History: Anxiety Female Reproductive Disorders: No Pertinent History Other Medical History: pt has factor 5 blood disorder, states febrile seizures as a child - Past Surgical History Past Surgical History: Yes Neuro Surgical History: No Pertinent History Cardiac: No Pertinent History Respiratory: No Pertinent History Gastrointestinal: No Pertinent History Genitourinary: No Pertinent History Musculoskeletal: No Pertinent History Female Surgical History: Section Other Surgical History: X 3 - Female History Hx Last Menstrual Period: 14 weeks ago Hx Now: Yes Gestational Age: 14 weeks - Social History Smoking Status: Never smoker Exposure to second hand smoke: No Drug Use: none Patient Lives Alone: No - Social Determinants of Health Will the patient participate in the screening: Yes Do you worry about a steady place to live?: No Do you have any problems with any of the following?: No known problems In the past 12 months,have you had to go without utilities?: No Transportation Issues: No Has anyone in your support network made you feel unsafe?: No Have you or anyone in your house had to go without enough: No - Nursing Vital Signs Nursing Vital Signs: Initial Vital Signs Temperature 98.4 F 01/03/24 19:08 Pulse Rate 94 H 01/03/24 19:08 Respiratory Rate 18 01/03/24 19:08 Blood Pressure 121/80 01/03/24 19:08 O2 Sat by Pulse Oximetry 98 01/03/24 19:08 Pain Scale Pain Intensity 0 - Physical Exam General Appearance: no apparent distress, alert, anxiety Eye Exam: PERRL/EOMI, eyes nml inspection Ears, Nose, Throat Exam: normal ENT inspection, pharynx normal, moist mucous membranes Neck Exam: normal inspection, non-tender, supple, full range of motion Respiratory Exam: normal breath sounds, lungs clear, No chest tenderness Cardiovascular Exam: regular rate/rhythm, normal heart sounds Gastrointestinal/Abdomen Exam: soft, normal bowel sounds, No tenderness Extremity Exam: normal inspection, normal range of motion Neurologic Exam: alert, oriented x 3, cooperative Skin Exam: normal color SpO2 Interpretation: normal SpO2: 98 O2 Delivery: Room Air - Course EKG Interpreted by Me: RATE (91), Sinus Rhythm, NORMAL AXIS, prolonged QT interval, Non-specific ST Changes, Other (Nonspecific T wave changes) Ordered Tests: Medication Summary Discontinued Medications Generic Name Dose Route Start Last Admin Trade Name Julian PRN Reason Stop Dose Admin Acetaminophen 1,000 mg 01/03/24 21:17 01/03/24 21:17 Acetaminophen 500 Mg Tablet PO 01/03/24 21:18 1,000 mg STAT ONE Administration Acetaminophen Confirm 01/03/24 21:15 Acetaminophen 500 Mg Tablet Administered 01/03/24 21:16 Dose 1,000 mg .ROUTE .STK-MED ONE Sodium Chloride 1,000 mls @ 999 mls/hr 01/03/24 19:15 01/03/24 20:43 Sodium Chloride 0.9% 1000 Ml IV 01/03/24 20:15 Infused .Q1H1M STA Infusion Sodium Chloride Confirm 01/03/24 19:33 Sodium Chloride 0.9% 1000 Ml Administered 01/03/24 19:34 Dose 1,000 mls @ ud .ROUTE .STK-MED ONE Lab/Rad Data: Laboratory Result Diagrams 01/03/24 19:15 01/03/24 19:15 Laboratory Results 01/03/24 01/03/24 01/03/24 Range/Units 21:40 19:15 19:15 WBC (3.98-10.04) x10^3/uL RBC (3.93-5.22) x10^6/uL Hgb (11.2-15.7) g/dL Hct (34.1-44.9) % MCV (79.4-94.8) fL MCH (25.6-32.2) pg MCHC (32.2-35.5) g/dL RDW (11.7-14.4) % Plt Count (182-369) x10^3/uL MPV (9.4-12.3) fL Gran % (34.0-71.1) % Immature Gran % (Auto) (0.001-0.429) % Nucleat RBC Rel Count (0.00-0.2) % Eos # (Auto) (0.04-0.36) x10^3/uL Immature Gran # (Auto) (0.001-0.031) x10^3u/L Absolute Lymphs (auto) (1.18-3.74) x10^3/uL Absolute Monos (auto) (0.24-0.86) x10^3/uL Absolute Nucleated RBC (0.00-0.012) x10^3u/L Lymphocytes % (19.3-51.7) % Monocytes % (4.7-12.5) % Eosinophils % (0.7-5.8) % Basophils % (0.1-1.2) % Absolute Granulocytes (1.56-6.13) x10^3/uL Basophils # (0.01-0.08) x10^3/uL D-Dimer 0.44 (0.0-0.50) mg/L Sodium (135-145) mmol/L Potassium (3.5-5.1) mmol/L Chloride (98-107) mmol/L Carbon Dioxide (22-30) mmol/L Anion Gap (5-15) MEQ/L BUN (7-17) mg/dL Creatinine (0.52-1.04) mg/dL Estimated GFR ML/MIN Glucose (74-106) mg/dL Calcium (8.4-10.2) mg/dL Total Bilirubin (0.2-1.3) mg/dL AST (14-36) U/L ALT (0-35) U/L Alkaline Phosphatase (38-126) U/L Troponin I < 0.012 (0.000-0.033) ng/mL NT-Pro-B Natriuret Pep < 20.0 (<300) pg/mL Serum Total Protein (6.3-8.2) g/dL Albumin (3.5-5.0) g/dL 01/03/24 01/03/24 Range/Units 19:15 19:15 WBC 10.8 H (3.98-10.04) x10^3/uL RBC 4.15 (3.93-5.22) x10^6/uL Hgb 11.8 (11.2-15.7) g/dL Hct 33.9 L (34.1-44.9) % MCV 81.7 (79.4-94.8) fL MCH 28.4 (25.6-32.2) pg MCHC 34.8 (32.2-35.5) g/dL RDW 13.2 (11.7-14.4) % Plt Count 215 (182-369) x10^3/uL MPV 11.4 (9.4-12.3) fL Gran % 75.3 H (34.0-71.1) % Immature Gran % (Auto) 0.4 (0.001-0.429) % Nucleat RBC Rel Count 0.0 (0.00-0.2) % Eos # (Auto) 0.06 (0.04-0.36) x10^3/uL Immature Gran # (Auto) 0.04 H (0.001-0.031) x10^3u/L Absolute Lymphs (auto) 1.78 (1.18-3.74) x10^3/uL Absolute Monos (auto) 0.75 (0.24-0.86) x10^3/uL Absolute Nucleated RBC 0.00 (0.00-0.012) x10^3u/L Lymphocytes % 16.5 L (19.3-51.7) % Monocytes % 7.0 (4.7-12.5) % Eosinophils % 0.6 L (0.7-5.8) % Basophils % 0.2 (0.1-1.2) % Absolute Granulocytes 8.11 H (1.56-6.13) x10^3/uL Basophils # 0.02 (0.01-0.08) x10^3/uL D-Dimer (0.0-0.50) mg/L Sodium 135 (135-145) mmol/L Potassium 3.2 L (3.5-5.1) mmol/L Chloride 101 (98-107) mmol/L Carbon Dioxide 25 (22-30) mmol/L Anion Gap 12.0 (5-15) MEQ/L BUN 8 (7-17) mg/dL Creatinine 0.49 L (0.52-1.04) mg/dL Estimated GFR 132.4 ML/MIN Glucose 124 H (74-106) mg/dL Calcium 9.5 (8.4-10.2) mg/dL Total Bilirubin 0.30 (0.2-1.3) mg/dL AST 22 (14-36) U/L ALT 27 (0-35) U/L Alkaline Phosphatase 67 (38-126) U/L Troponin I < 0.012 (0.000-0.033) ng/mL NT-Pro-B Natriuret Pep (<300) pg/mL Serum Total Protein 7.0 (6.3-8.2) g/dL Albumin 3.9 (3.5-5.0) g/dL - Progress Progress: improved Air Movement: good Progress Note: 01/03/24 28-year-old is evaluated in the ER for left-sided chest pain since morning which hurts to take a deep breath but no obvious difficulty breathing. Room air oxygen in upper 90s. No tachypnea or tachycardia. Lungs bilateral clear to auscultation. Chest x-ray no obvious infiltrative process reviewed by me, official report is pending. Normal white count, fairly unremarkable chemistries and negative troponins x 2. Patient is given Tylenol, feeling better on reevaluation. Patient has a heart tone in 160s. No pelvic cramping/pain or vaginal bleeding/discharge. Patient is taking Lovenox. I have discussed with Dr. Montoya patient's primary OB, reviewed history, workup, agreed with obtaining D-dimer and if positive, patient will undergo go CTA but it turned out to be negative. PE is less likely with the fact she has negative D-dimer and is on Lovenox. She does have some element of anxiety causing her symptoms. Recommended outpatient follow-up. Discussed signs symptoms of worsening needing return to ER which she seems understanding. Stable for discharge. Blood Culture(s) Obtained: No Antibiotics given: No Counseled pt/family regarding: lab results, diagnosis, need for follow-up, rad results - Departure Departure Disposition: Home Clinical Impression: Chest pain during Condition: Stable Critical Care Time: No Referrals: MARISOL DUDLEY NP [Primary Care Provider] - Follow up with PCP 1 day MARY MONTOYA DO [ACTIVE STAFF] - Follow up/PCP as directed (Call for appointment) Instructions: Chest Pain (DC) Additional Instructions: Take Tylenol as needed. Drink plenty of fluids to keep yourself well-hydrated. Follow-up with your primary care/primary OB for reevaluation. Return to ER for worsening chest pain or if having difficulty breathing, pelvic cramping/vaginal bleeding etc.
[2024-01-03] MEDS ORDERED: Sodium Chloride 0.9% 1000 ML 1,000 ML ONE (19:33)
[2024-01-03] MEDS: Sodium Chloride 0.9% 1000 ML 1,000 ML IV STA (19:35)
[2024-01-03 19:42] LABS: ALBUMIN 3.9 g/dL (3.5-5.0); ALKALINE PHOSPHATASE 67 U/L (38-126); BLOOD UREA NITROGEN 8 mg/dL (7-17); CHLORIDE 101 mmol/L (98-107); Calcium 9.5 mg/dL (8.4-10.2); Carbon Dioxide 25 mmol/L (22-30); Creatinine 1 0.49 mg/dL (0.52-1.04); EST GLOMERULAR FILTRATION RATE 132.4 ML/MIN; Glucose 124 mg/dL (74-106); Potassium 3.2 mmol/L (3.5-5.1); SGOT/AST 22 U/L (14-36); SGPT/ALT 27 U/L (0-35); SODIUM 135 mmol/L (135-145); TROPONIN < 0.012 ng/mL (0.000-0.033)
[2024-01-03] MEDS ORDERED: TYLENOL EXTRA STRENGTH 500 MG ONE (21:15)
[2024-01-03] MEDS: TYLENOL EXTRA STRENGTH 500 MG PO ONE (21:17)
[2024-01-03 21:21] VITALS: O2SAT 98
[2024-01-03 22:10] VITALS: BP 124/77; PULSE 84; RESP 20
--- NOTE | 2024-01-04 08:03 | XRAY ---
Indication: Chest pain. Comparison: None Portable chest demonstrates normal heart, lungs, and bony thorax.
== END 2024-01-03 22:29 | disposition home or self-care (01) ==
LOC: ED 18:58
DX: O26.892 Other specified pregnancy related conditions, second trimester (principal); R07.9 Chest pain, unspecified; O99.112 Other diseases of the blood and blood-forming organs and certain disorders involving the immune mechanism complicating pregnancy, second trimester; D68.51 Activated protein C resistance; Z3A.14 14 weeks gestation of pregnancy; Z79.899 Other long term (current) drug therapy
CPT/HCPCS: 36000; 36415; 71045; 80053; 83880; 84484; 85025; 85379; 93005; 93041; 96360; 99284; A9270-GY

== ENCOUNTER 2024-04-26 21:02 | Observation (INO) | payer MEDICAID ==
[2024-04-26 21:36] VITALS: RESP 18; TEMP 98.1; O2SAT 97
[2024-04-26 23:31] VITALS: BP 113/61; PULSE 83
== END 2024-04-26 23:28 | disposition home or self-care (01) ==
LOC: OB 21:02
PROVIDERS: ADMIT Family Medicine; ATTEND Family Medicine
DX: Z34.83 Encounter for supervision of other normal pregnancy, third trimester (principal); Z3A.30 30 weeks gestation of pregnancy
CPT/HCPCS: 93268; G0378; G0379

== ENCOUNTER 2024-06-17 05:16 | Inpatient (IN) | payer MEDICAID ==
[~2024-06-17 05:16] MED LIST changes: -Adacel Vial IM ONE; -CLINDAMYCIN-D5W 900 MG/50 ML*** 900 MG/50 ML BAG IV SCH; +CORTISONE 1% CREAM TP PRN; -Dermoplast Spray TP PRN; +Docusate Sodium 100 MG PO SCH; -LANSINOH 40 GM TOP PRN; -Lactated Ringers 1,000 ML IV ONE; +Lactated Ringers 1,000 ML IV SCH; +MOTRIN 400 MG PO PRN; -Reglan 10 MG/2 ML IV SCH; -Restoril 15 MG PO PRN; -Rhogam Plus 300 MCG IM ONE; -TUCKS TP PRN; +TYLENOL EXTRA STRENGTH 500 MG PO PRN
[2024-06-17] MEDS ORDERED: CORTISONE 1% CREAM TP PRN (05:26)
[2024-06-17] MEDS ORDERED: NORCO 5/325 MG PO PRN (05:26)
[2024-06-17] MEDS ORDERED: CLINDAMYCIN-D5W 900 MG/50 ML*** 900 MG/50 ML BAG IV SCH (05:30)
[2024-06-17] MEDS: Lactated Ringers 1,000 ML IV SCH (05:45)
[2024-06-17 06:04] LABS: Hematocrit 32.8 % (34.1-44.9); Hemoglobin 11.2 g/dL (11.2-15.7); Mean Cell Volume 81.8 fL (79.4-94.8); Mean Corpuscular Hemoglobin 27.9 pg (25.6-32.2); Mean Corpuscular Hgb Concent. 34.1 g/dL (32.2-35.5); Mean Platelet Volume 10.8 fL (9.4-12.3); Platelet Count 218 x10^3/uL (182-369); Red Blood Count 4.01 x10^6/uL (3.93-5.22); Red Cell Distribution Width 15.2 % (11.7-14.4); White Blood Count 13.8 x10^3/uL (3.98-10.04)
[2024-06-17 06:20] LABS: INR 0.87 (0.8-3.0); PROTIME 9.6 SECONDS (9.4-12.5); PTT 23.4 SECONDS (25.1-36.5)
[2024-06-17 06:43] LABS: Amphetamine,Urine NEGATIVE (NEGATIVE); Barbiturate,Urine NEGATIVE (NEGATIVE); Benzodiazepine,Urine NEGATIVE (NEGATIVE); Cocaine,Urine NEGATIVE (NEGATIVE); Methadone,Urine NEGATIVE (NEGATIVE); Opiate,Urine NEGATIVE (NEGATIVE); PCP,Urine NEGATIVE (NEGATIVE); THC,Urine NEGATIVE (NEGATIVE)
[2024-06-17 06:51] LABS: ABO TYPING O; Antibody Screen NEGATIVE (NEGATIVE); RH TYPING NEGATIVE
[2024-06-17 07:38] LABS: Appearance Clear (Clear); Bacteria Rare /HPF (None Seen); Bilirubin Negative (Negative); Blood Negative (Negative); Epithelial Cells Moderate /HPF (None Seen); Glucose, Urine Negative (Negative); Ketones Negative (Negative); Leukocyte Esterase Small (Negative); Nitrite Negative (Negative); Protein,Urine Dip Negative (Negative); Urobilinogen 0.2 mg/dL (0.2)
[2024-06-17] MEDS: SOD CITRATE-CITRIC ACID SOLN PO SCH (07:44)
[2024-06-17] MEDS: Pepcid 20 MG VIAL IV SCH (07:49)
[2024-06-17] MEDS: Reglan 10 MG/2 ML IV STA (07:50)
[2024-06-17] MEDS ORDERED: Dextrose 5%-Lr IV Solution 1000 ML 1,000 ML IV SCH (08:00)
[2024-06-17] MEDS ORDERED: LANSINOH 40 GM TOP PRN ×2 (08:00)
[2024-06-17] MEDS ORDERED: CLINDAMYCIN-D5W 900 MG/50 ML*** 900 MG/50 ML BAG IV ONE (08:13)
[2024-06-17] MEDS: CLINDAMYCIN-D5W 900 MG/50 ML*** 900 MG/50 ML BAG IV SCH ×2 (08:17→13:50)
[2024-06-17] MEDS ORDERED: OFIRMEV 100 ML IV ONE (08:25)
[2024-06-17] MEDS ORDERED: EXPAREL 133 MG/10 ML VIAL IJ ONE (08:25)
[2024-06-17] MEDS ORDERED: Marcaine Mpf 0.5% Vial 30 Ml ONE (08:25)
[2024-06-17] MEDS ORDERED: Astramorph-Pf 5 MG/10 ML ONE (08:27)
[2024-06-17] MEDS ORDERED: Pitocin 10 UNITS/ML ONE (08:30)
[2024-06-17] MEDS ORDERED: Lactated Ringers 1,000 ML IV ONE ×2 (08:34→08:52)
[2024-06-17] MEDS ORDERED: PHENYLEPHRINE HCL ONE (08:45)
[2024-06-17] MEDS ORDERED: Zofran 4 MG/2 ML VIAL ONE (09:01)
[2024-06-17] MEDS ORDERED: Ephedrine Sulfate 50 MG/ML ONE (09:04)
[2024-06-17] MEDS ORDERED: Versed 2 MG/2 ML Injection ONE (09:20)
[2024-06-17] MEDS ORDERED: SUBLIMAZE 100 MCG/2 ML ONE (09:27)
[2024-06-17] MEDS ORDERED: propofoL IV ONE (09:31)
[2024-06-17 10:41] VITALS: O2SAT 100
[2024-06-17] MEDS: TYLENOL EXTRA STRENGTH 500 MG PO PRN (11:20)
[2024-06-17] MEDS ORDERED: HOLD NARCOTIC ANALGESICS AND SEDATIVES X24 HR MC PRN (11:29)
[2024-06-17] MEDS ORDERED: Zofran 4 MG/2 ML VIAL IV PRN (11:29)
[2024-06-17] MEDS ORDERED: Nubain 10 MG/ML IV PRN (11:29)
[2024-06-17] MEDS ORDERED: DEMEROL 50 MG IV PRN (11:29)
[2024-06-17] MEDS ORDERED: Narcan 0.4 MG/ML IV PRN (11:29)
[2024-06-17] MEDS ORDERED: MORPHINE SULFATE 2 MG INJ IV PRN (11:29)
[2024-06-17] MEDS: Dextrose 5%-Lr IV Solution 1000 ML 1,000 ML IV SCH (11:44)
[2024-06-17] MEDS: CLARITIN 10 MG PO PRN (12:18)
[2024-06-17] MEDS: BENADRYL 50 MG/ML IV PRN (13:17)
[2024-06-17 14:17] LABS: Appearance Clear (Clear); Bacteria Rare /HPF (None Seen); Bilirubin Negative (Negative); Blood Large (Negative); Epithelial Cells Rare /HPF (None Seen); Glucose, Urine Negative (Negative); Hyaline Casts NONE SEEN /LPF (0-2); Ketones Negative (Negative); Leukocyte Esterase Negative (Negative); Nitrite Negative (Negative); Protein,Urine Dip Negative (Negative); RBC 21-50 /HPF (0-5); Specific Gravity 1.015 (1.005-1.030); Urobilinogen 0.2 mg/dL (0.2)
[2024-06-17] MEDS: Docusate Sodium 100 MG PO SCH (15:25)
[2024-06-17] MEDS ORDERED: Rhogam Plus 300 MCG IM ONE (15:30)
[2024-06-17] MEDS: MOTRIN 400 MG PO PRN (17:40)
[2024-06-17] MEDS: TUCKS TP PRN (20:00)
[2024-06-17] MEDS: Dermoplast Spray TP PRN (20:00)
[2024-06-17 21:29] VITALS: RESP 18
[2024-06-17] MEDS: Rhogam Plus 300 MCG IM ONE (21:35)
[2024-06-17] MEDS ORDERED: FERREX 150 PO SCH (22:00)
[2024-06-18 04:59] LABS: Absolute Neutrophil Ct (ANC) 13.65 x10^3/uL (1.56-6.13); BASOPHIL % 0.2 % (0.1-1.2); Basophil (Absolute #) 0.04 x10^3/uL (0.01-0.08); Eosinophil % 0.6 % (0.7-5.8); Eosinophil (Absolute #) 0.11 x10^3/uL (0.04-0.36); Hematocrit 30.9 % (34.1-44.9); Hemoglobin 10.5 g/dL (11.2-15.7); IMMATURE GRAN # 0.25 x10^3u/L (0.001-0.031); IMMATURE GRAN % 1.5 % (0.001-0.429); Lymphocyte (Absolute #) 1.37 x10^3/uL (1.18-3.74); Mean Cell Volume 84.2 fL (79.4-94.8); Mean Corpuscular Hemoglobin 28.6 pg (25.6-32.2); Mean Platelet Volume 10.9 fL (9.4-12.3); Monocyte (Absolute #) 1.61 x10^3/uL (0.24-0.86); Monocytes % 9.5 % (4.7-12.5); Neutrophil % 80.2 % (34.0-71.1); Platelet Count 188 x10^3/uL (182-369); Red Blood Count 3.67 x10^6/uL (3.93-5.22); Red Cell Distribution Width 15.4 % (11.7-14.4)
[2024-06-18 05:17] LABS: Slide Review 1 YES
[2024-06-18] MEDS: FERREX 150 PO SCH (07:45)
[2024-06-18] MEDS: Mylicon 80MG PO PRN (07:46)
[2024-06-18 08:30] VITALS: TEMP 97.9
--- NOTE | 2024-06-18 08:37 | PCM.NOTE ---
Date and Time: 06/18/24832 Subjective Assessment: pod 1 sp csection pt resting in bed and doing well able to ambulate and tolerate diet. pt anxious to be discharged since her baby was transferred to [facility] and desires to leave at this time. vss afebrile abd; soft dressing intact with minimal soilage uterus; firm lochia; mild hgb; 10.5 a/p sp csection pod 1 will dc home today at noon needs to fu in office in 1 wk for postop check will continue her lovenox 40mg once daily for 6 wks. Objective Data Vital Signs: Vital Signs - 24 hr Temp Pulse Resp BP Pulse Ox 06/18/24 08:00 97.9 F 91 H 18 110/69 100 06/18/24 04:00 97.2 F 97 H 18 122/66 100 06/17/24 21:28 97.8 F 90 18 120/70 100 06/17/24 18:07 98.1 F 98 H 17 133/83 100 06/17/24 18:00 98.1 F 98 H 17 133/83 100 06/17/24 14:00 97.8 F 93 H 16 137/82 100 06/17/24 12:30 97.8 F 93 H 16 137/82 100 06/17/24 12:15 98.2 F 98 H 16 129/71 100 06/17/24 11:15 98.7 F 96 H 16 121/65 100 06/17/24 11:00 98.6 F 94 H 16 146/92 100 06/17/24 10:45 98.6 F 98 H 16 123/89 100 06/17/24 10:30 98.6 F 102 H 17 131/90 100 Pain Assessment - Last Documented Pain Intensity [Lower] 3 Pain Intensity 3 Pain Scale Used 0-10 Pain Scale Intake and Output: Intake & Output 06/15/24 06/16/24 06/17/24 06/18/24 11:59 11:59 11:59 11:59 Output Total 975 Balance -975 Weight 92.079 kg Lab Results: Lab Results-Last 24 Hours 06/17/24 06/17/24 06/18/24 Range/Units 05:00 09:18 04:57 WBC 17.0 H (3.98-10.04) x10^3/uL RBC 3.67 L (3.93-5.22) x10^6/uL Hgb 10.5 L (11.2-15.7) g/dL Hct 30.9 L (34.1-44.9) % MCV 84.2 (79.4-94.8) fL MCH 28.6 (25.6-32.2) pg MCHC 34.0 (32.2-35.5) g/dL RDW 15.4 H (11.7-14.4) % Plt Count 188 (182-369) x10^3/uL MPV 10.9 (9.4-12.3) fL Gran % 80.2 H (34.0-71.1) % Immature Gran % (Auto) 1.5 H (0.001-0.429) % Nucleat RBC Rel Count 0.0 (0.00-0.2) % Eos # (Auto) 0.11 (0.04-0.36) x10^3/uL Immature Gran # (Auto) 0.25 H (0.001-0.031) x10^3u/L Absolute Lymphs (auto) 1.37 (1.18-3.74) x10^3/uL Absolute Monos (auto) 1.61 H (0.24-0.86) x10^3/uL Absolute Nucleated RBC 0.00 (0.00-0.012) x10^3u/L Lymphocytes % 8.0 L (19.3-51.7) % Monocytes % 9.5 (4.7-12.5) % Eosinophils % 0.6 L (0.7-5.8) % Basophils % 0.2 (0.1-1.2) % Absolute Granulocytes 13.65 H (1.56-6.13) x10^3/uL Basophils # 0.04 (0.01-0.08) x10^3/uL Urine Color Yellow (Yellow) Urine Appearance Clear (Clear) Urine pH 7.0 (4.6-8.0) Ur Specific [place] 1.015 (1.005-1.030) Urine Protein Negative (Negative) Urine Glucose (UA) Negative (Negative) mg/dL Urine Ketones Negative (Negative) Urine Blood Large A (Negative) Urine Nitrite Negative (Negative) Urine Bilirubin Negative (Negative) Urine Urobilinogen 0.2 (0.2) mg/dL Ur Leukocyte Esterase Negative (Negative) U Hyaline Cast (Auto) NONE SEEN (0-2) /LPF Urine Microscopic RBC 21-50 A (0-5) /HPF Urine Microscopic WBC 6-10 A (0-5) /HPF Ur Epithelial Cells Rare (None Seen) /HPF Urine Bacteria Rare A (None Seen) /HPF Urine Culture Reflexed NO (NO) Slides for Path Review YES Multi-Disciplinary Progress Notes: Multi-Disciplinary Progress Notes 06/17/24 10:05 Respiratory Note by Juliana Best TIME OF 0906. BABY CRYING , BODY CYNOTIC THRU-OUT. AT 0910 PPV STARTED ALONG WITH SX OVER THE NEXT 10MIN. BABIES COLOR MUCH IMPROVED, SPO2 IN LOW 90s to mid 90s, a total of 3cc OF PINK TINGED SPUTUM. B/S MUCH IMPROVED FROM CRACKLES TO NEARLY CLEAR. PT TRANSPORTED BACK TO NURSERY. COLOR REMAINS PINK. SPO2 92% Initialized on 06/17/24 10:05 - END OF NOTE Assessment/Plan (1) Status post repeat low transverse section Current Visit: No Status: Acute Code(s): Z98.891 - HISTORY OF UTERINE SCAR FROM PREVIOUS SURGERY
--- NOTE | 2024-06-18 08:42 | PCM.DS ---
Discharge Summary Date of Admission: 06/17/24 05:25 Admitting Physician: MARY JUARES DO Consults: Consults on Case 06/17/24 05:00 Notify Anesthesia Provider ROUTINE Notify Physician OF ADMISSION 06/17/24 11:29 Notify Anesthesia Provider PRN Primary Care Provider: MARISOL DUDLEY NP Allergies Allergies cephalexin [From Keflex] Allergy (Mild, Verified 05/05/24 17:37) Hives Penicillins Allergy (Mild, Verified 05/05/24 17:37) Hives sulfamethoxazole [From Bactrim] Allergy (Mild, Verified 05/05/24 17:37) Hives trimethoprim [From Bactrim] Allergy (Mild, Verified 05/05/24 17:37) [facility] Summary - Hospital Course Hospital Course: pt admitted on jun 17 for undergoing repeat csection with tubal sterilization and underwent procedure without complication. pt with hx of heterozygous factor 5 leiden and hx of previous csection x 3 was advised by m to proceed with csection at 38 wks gestation. pt during postop period did well able to ambulate and tolerate diet with stable hgb at 10.5. pts baby was transferred to [facility] and therefore would like to be discharged today. incision with dressing intact with minimal bleeding noted. pt understands to call me for any issues that may arise upon discharge including but not limited to fever, abnormal bleeding or elevated bp. pt is to continue taking her lovenox 40mg once daily up to 6 wks and will take ibuprofen and tylenol for pain management. all questions answered to her satisfaction and was advised to fu in office in 1 wk. - Vitals & Intake/Output Vital Signs: Vital Signs Temperature 97.9 F 06/18/24 08:00 Pulse Rate 91 H 06/18/24 08:00 Respiratory Rate 18 06/18/24 08:00 Blood Pressure 110/69 06/18/24 08:00 O2 Sat by Pulse Oximetry 100 06/18/24 08:00 Intake & Output: Intake & Output 06/15/24 06/16/24 06/17/24 06/18/24 11:59 11:59 11:59 11:59 Output Total 975 Balance -975 Weight 92.079 kg - Lab Result Diagrams: 06/18/24 04:57 Lab Results-Last 24 Hrs: Lab Results-Last 24 Hours 06/17/24 06/17/24 06/18/24 Range/Units 05:00 09:18 04:57 WBC 17.0 H (3.98-10.04) x10^3/uL RBC 3.67 L (3.93-5.22) x10^6/uL Hgb 10.5 L (11.2-15.7) g/dL Hct 30.9 L (34.1-44.9) % MCV 84.2 (79.4-94.8) fL MCH 28.6 (25.6-32.2) pg MCHC 34.0 (32.2-35.5) g/dL RDW 15.4 H (11.7-14.4) % Plt Count 188 (182-369) x10^3/uL MPV 10.9 (9.4-12.3) fL Gran % 80.2 H (34.0-71.1) % Immature Gran % (Auto) 1.5 H (0.001-0.429) % Nucleat RBC Rel Count 0.0 (0.00-0.2) % Eos # (Auto) 0.11 (0.04-0.36) x10^3/uL Immature Gran # (Auto) 0.25 H (0.001-0.031) x10^3u/L Absolute Lymphs (auto) 1.37 (1.18-3.74) x10^3/uL Absolute Monos (auto) 1.61 H (0.24-0.86) x10^3/uL Absolute Nucleated RBC 0.00 (0.00-0.012) x10^3u/L Lymphocytes % 8.0 L (19.3-51.7) % Monocytes % 9.5 (4.7-12.5) % Eosinophils % 0.6 L (0.7-5.8) % Basophils % 0.2 (0.1-1.2) % Absolute Granulocytes 13.65 H (1.56-6.13) x10^3/uL Basophils # 0.04 (0.01-0.08) x10^3/uL Urine Color Yellow (Yellow) Urine Appearance Clear (Clear) Urine pH 7.0 (4.6-8.0) Ur Specific Julian 1.015 (1.005-1.030) Urine Protein Negative (Negative) Urine Glucose (UA) Negative (Negative) mg/dL Urine Ketones Negative (Negative) Urine Blood Large A (Negative) Urine Nitrite Negative (Negative) Urine Bilirubin Negative (Negative) Urine Urobilinogen 0.2 (0.2) mg/dL Ur Leukocyte Esterase Negative (Negative) U Hyaline Cast (Auto) NONE SEEN (0-2) /LPF Urine Microscopic RBC 21-50 A (0-5) /HPF Urine Microscopic WBC 6-10 A (0-5) /HPF Ur Epithelial Cells Rare (None Seen) /HPF Urine Bacteria Rare A (None Seen) /HPF Urine Culture Reflexed NO (NO) Slides for Path Review YES Micro Results-Entire Visit: Microbiology 06/17/24 09:18 Urine Culture - Preliminary Catherized NO GROWTH TO DATE - Procedures and Test Procedures and Tests throughout Hospitalization: Therapy Orders & Screens 06/17/24 10:03 Standby ROUTINE Comment: Diagnosis: Post Op Final Diagnosis/Problem List - Final Discharge Diagnosis/Problem (1) Status post repeat low transverse section Current Visit: No Status: Acute Code(s): Z98.891 - HISTORY OF UTERINE SCAR FROM PREVIOUS SURGERY - Discharge Disposition: Home, Self-Care Condition: Stable Prescriptions: No Action Vits W-Ca,Fe,FA(<1Mg) [] 1 tab PO HS Sertraline HCl 50 mg [Zoloft 50 mg Tablet] 50 mg PO DAILY Ferrous Sulfate [Iron] 325 mg PO DAILY Heparin Sodium,Porcine/Pf [Heparin 1,000 Unit/10 (100/ml)] 1,000 unit SQ BID Follow up with: MARISOL DUDLEY NP [Primary Care Provider] - MARY JUARES DO [ACTIVE STAFF] - 1 Week (should call me for any issues that may arise may take shower but no bath can go up and down stairs no heavy lifting no intercourse)
[2024-06-18 08:52] LABS: RPR Non Reactive (Non Reactive)
[2024-06-18] MEDS: ENOXAPARIN SODIUM SQ SCH (10:14)
[2024-06-18] MEDS: Adacel Vial IM ONE (10:15)
[2024-06-18 12:28] VITALS: BP 124/73; PULSE 100
--- NOTE | 2024-06-18 19:33 | OP ---
SURGERY DATE/TIME: 06/17/2024 [id number] PREOPERATIVE DIAGNOSIS: Intrauterine at 38 weeks and 3 days' gestation with history of heterozygous factor V Leiden with previous section x3 desiring tubal sterilization. POSTOPERATIVE DIAGNOSIS: Intrauterine at 38 weeks and 3 days' gestation with history of heterozygous factor V Leiden with previous section x3 desiring tubal sterilization with nuchal cord x1. PROCEDURE: Repeat section x4, low flap transverse uterine incision, Pfannenstiel skin incision, bilateral tubal sterilization via modified [place] technique with bilateral fimbriectomy. SURGEON: Yong Montoya MD CORRESPONDENCE SPECIALIST: Amisha Lowe. ANESTHESIA: Spinal. ESTIMATED BLOOD LOSS: 725 mL. COMPLICATIONS: None. DESCRIPTION OF PROCEDURE AND FINDINGS: The risks, benefits, indications, and alternatives of the procedure were reviewed with the patient prior to the procedure. Patient understood the risks of infection, bleeding, bowel injury, bladder injury, ureteral injury, pelvic infection, and thromboembolic disorder associated with this surgery; however, desires to have the surgery as a possible means to alleviate her current medical condition. Patient also understood the risk of possible future despite having tubal sterilization and understands that tubal sterilization is considered a permanent procedure. All other forms of control were discussed with the patient prior to the procedure. Patient does understand the risk of possible future and ectopic may still occur; however, desires to have this procedure as a possible means for control measure. From this point, the patient was taken to the operating room where her spinal anesthesia was found to be adequate. She was then prepared and draped in a normal sterile fashion in the dorsal supine position with a leftward tilt. A Pfannenstiel skin incision was made with the scalpel and carried through to the underlying layer of the fascia with a Bovie. The fascia was then incised in the midline, and the incision extended laterally with the Martinez scissors. The superior aspect of the fascial incision was then grasped with the Marleny clamps, elevated, and the underlying rectus muscle dissected out bluntly. Attention was then turned to the inferior aspect of this incision which, in a similar fashion, was grasped, tented up with the Marleny clamps, and the rectus muscle was dissected out bluntly. The rectus muscle was then in the midline. The peritoneum identified, tented up, and entered sharply with the Metzenbaum scissors. The peritoneal incision was then extended superiorly and inferiorly with good visualization of the bladder. The bladder blade was then inserted. The vesicouterine peritoneum identified, grasped with the pickups and then entered sharply with the Metzenbaum scissors. This incision was then extended laterally and a bladder flap created digitally. The bladder blade was then reinserted, and the lower uterine segment incised in a transverse fashion with the scalpel. The uterine incision was then extended laterally with the Martinez scissors. The bladder blade was then removed, and the 's head was delivered atraumatically with a noted nuchal cord x1 which was reduced. The nose and mouth were suctioned with the bulb suction, the cord clamped and cut. The infant was then handed off to waiting nurses. The placenta was then removed manually, the uterus exteriorized and cleared of all clots and debris. The uterine incision was repaired with 1-0 chromic in a running locked fashion. A second layer of the same suture was used to obtain excellent hemostasis. At this point, the right fallopian tube was identified and a [place] clamp was placed and grasped approximately 4 cm from the cornual region where a 3 cm segment of the tube was then ligated with a free tie of plain gut and excised. Good hemostasis was noted. An additional Marleny clamp was placed on the right mesosalpinx to excise the fimbriae and was done so without complications, and a free tie of plain gut was used for hemostasis. The same procedure was performed on the left adnexa where the [place] clamp was placed and used to grasp the tube approximately 4 cm from the cornual region. A 3 cm segment of the tube was then ligated with a free tie of plain gut and excised. Good hemostasis was noted, and additionally, the Marleny clamp was placed on the mesosalpinx on the left side, excising the fimbriae in a similar fashion where a free tie of plain gut was used for hemostasis. From this point, the uterus was then returned to the abdomen. The gutters were cleared of all clots, and the peritoneum and muscle were closed in an interrupted fashion using 2-0 chromic suture. The fascia was reapproximated with 0 Vicryl in a running fashion. Subcutaneous layer was closed with 3-0 Vicryl suture, and the skin was closed with Insorb. Patient tolerated the procedure well. Sponge, lap, needle, and instrument counts were correct x2. Patient was then taken to the recovery room in stable condition. Patient delivered a live baby girl at 9:06 a.m. Apgars were 6, 7, and 9.
== END 2024-06-18 12:00 | disposition home or self-care (01) | DRG 784 ==
LOC: OB 05:16 → UNDOADMOB 05:16 → PREOBSVTOIN 05:25 → UNDOADMIN 05:25 → OB 05:25 → UNDODISIN 06-18 12:00
PROVIDERS: ADMIT Obstetrics & Gynecology; ATTEND Obstetrics & Gynecology
PROC: 10D00Z1 Extraction of Products of Conception, Low, Open Approach (ICD-10-PCS; principal; 2024-06-17)
PROC: 0UT70ZZ Resection of Bilateral Fallopian Tubes, Open Approach (ICD-10-PCS; 2024-06-17)
DX: O34.219 Maternal care for unspecified type scar from previous cesarean delivery (principal); D68.51 Activated protein C resistance; O69.81X0 Labor and delivery complicated by cord around neck, without compression, not applicable or unspecified; Z30.2 Encounter for sterilization; Z3A.38 38 weeks gestation of pregnancy; Z37.0 Single live birth
CPT/HCPCS: 36415; 58611; 59514; 76937; 80307; 81001; 85025; 85027; 85461; 85610; 85730; 86592; 86850; 86900; 86901; 87086; 90471; 90715; 94799; G0378; J1200; J1650; J2250; J2274; J2371; J2405; J2590; J2704; J2790; J3010; L0625; A9270-GY